=== PATIENT | male | born 1990 | race Caucasian/White ===

== ENCOUNTER 2018-10-17 16:54 | Emergency (ER) | payer SELFPAY ==
[2018-10-17 16:55] VITALS: BP 105/68; PULSE 93; RESP 16; TEMP 36.3; O2SAT 100; BMI 22.4
[2018-10-17 17:03] VITALS: BP 116/82; PULSE 94; RESP 14; O2SAT 100
[2018-10-17] MEDS: 0.9% Normal Saline 1,000 ML 1000 ML IV (18:07)
[2018-10-17] MEDS: diazePAM 5 MG Tablet PO (18:07)
[2018-10-17] MEDS: Ondansetron 4 MG/2 ML Vial IV (18:07)
--- NOTE | 2018-10-17 18:16 | ED.VISSUMM ---
- ER Visit Summary Date of Service: 10/17/18 Chief Complaint: Vertigo History of Present Illness: The patient is a 28 M [facility] emergency department with dizziness. 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 He states he has been fine for several years. On Monday he had an episode of dizziness but it went away. Today he states it was much worse. He notes an episode of vomiting. States he gets dizzy when he stands and when he flexes his neck. He states as long as he is remaining still he was fine. No recent infections. No change in hearing. He is on hydrochlorothiazide for hypertension. Physical Examination: Afebrile vital stable Gen: Well-nourished well-developed Head: Normocephalic atraumatic Eyes: Perrl EOMI ENT: TMs clear no rhinorrhea moist mucous membranes Neck: Supple no lymphadenopathy no JVD nontender CVS: Regular rate rhythm no murmurs normal S1-S2 Respiratory: No distress clear to auscultation bilaterally chest nontender Abdomen: Soft nontender nondistended normal bowel sounds no masses Back: Nontender Extremity: Nontender no edema Skin: Normal color no rash Neuro: alert orientated ?3 CN II-XII intact normal strength sensation reflexes positive Edroy-Hallpike maneuver Psych: Normal affect normal mood Test Results: BMP was obtained. Potassium 3.3. Emergency Department Course and Treatment: Patient received IV fluids, Zofran, and Valium. He is able to ambulate to the bathroom and feels significantly better than he did before. I would provide him with Zofran and Valium at home. Also can give him a handout on cannula 3 positioning technique. I will refer him to ENT. Impression: 1. Vertigo This note was generated with [employer] dictation software. It may contain incorrect words, spelling, and punctuation that were not noted in review of the chart prior to signing ED Disposition - Plan for ED Patient: Disposition: Home or Assisted Living Instructions: ED BPV Vertigo Prescriptions: Ondansetron [Zofran Odt] 4 mg PO Q6H PRN PRN #10 tab PRN Reason: Nausea Diazepam [Valium] 5 mg PO TID PRN #15 tab PRN Reason: Vertigo Referrals: Jose Rojas MD [STAFF PHYSICIAN] - (Call if you wish to see ENT for your vertigo) Khalida Davis DO [Primary Care Provider] - 1 Week
--- NOTE | 2018-10-17 18:20 | ED.DCSUM_ITS ---
- ER Visit Summary Date of Service: 10/17/18 Chief Complaint: Vertigo History of Present Illness: The patient is a 28 M [facility] emergency department with dizziness. 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 He states he has been fine for several years. On Monday he had an episode of dizziness but it went away. Today he states it was much worse. He notes an episode of vomiting. States he gets dizzy when he stands and when he flexes his neck. He states as long as he is remaining still he was fine. No recent infections. No change in hearing. He is on hydrochlorothiazide for hypertension. Physical Examination: Afebrile vital stable Gen: Well-nourished well-developed Head: Normocephalic atraumatic Eyes: Perrl EOMI ENT: TMs clear no rhinorrhea moist mucous membranes Neck: Supple no lymphadenopathy no JVD nontender CVS: Regular rate rhythm no murmurs normal S1-S2 Respiratory: No distress clear to auscultation bilaterally chest nontender Abdomen: Soft nontender nondistended normal bowel sounds no masses Back: Nontender Extremity: Nontender no edema Skin: Normal color no rash Neuro: alert orientated ?3 CN II-XII intact normal strength sensation reflexes positive Hollywood-Hallpike maneuver Psych: Normal affect normal mood Test Results: BMP was obtained. Potassium 3.3. Emergency Department Course and Treatment: Patient received IV fluids, Zofran, and Valium. He is able to ambulate to the bathroom and feels significantly better than he did before. I would provide him with Zofran and Valium at home. Also can give him a handout on cannula 3 positioning technique. I will refer him to ENT. Impression: 1. Vertigo This note was generated with [employer] dictation software. It may contain incorrect words, spelling, and punctuation that were not noted in review of the chart prior to signing ED Disposition - Plan for ED Patient: Disposition: Home or Assisted Living Instructions: ED BPV Vertigo Prescriptions: Ondansetron [Zofran Odt] 4 mg PO Q6H PRN PRN #10 tab PRN Reason: Nausea Diazepam [Valium] 5 mg PO TID PRN #15 tab PRN Reason: Vertigo Referrals: Jose Rojas MD [STAFF PHYSICIAN] - (Call if you wish to see ENT for your vertigo) Khalida Davis DO [Primary Care Provider] - 1 Week
[2018-10-17 18:33] LABS: Anion Gap 6 (5-15); BUN 11 mg/dL (7-18); BUN/Creat Ratio 11.2 RATIO (10-20); Calcium,Total 9.1 mg/dL (8.5-10.1); Chloride 100 mmol/L (98-107); Creatinine, Serum 0.98 mg/dL (0.70-1.30); EST Glomerular Filtration Rate 97 mL/min (>60); Est Glom Filt Rate - Afr Amer 117 mL/min (>60); Estimated Creatinine Clearance 98.07 ml/min; Glucose 101 mg/dL (74-106); Potassium 3.3 mmol/L (3.5-5.1); Sodium Level 136 mmol/L (136-145)
[2018-10-17 19:19] VITALS: BP 115/71; PULSE 89; RESP 17; O2SAT 97
[2018-10-17 19:44] VITALS: BP 118/70; PULSE 86; RESP 17; O2SAT 100
== END 2018-10-17 19:45 | disposition home or self-care (01) ==
PROVIDERS: Emergency Provider Emergency Medicine; Family Provider Family Medicine; PCP Family Medicine
DX: R42 Dizziness and giddiness (principal); I10 Essential (primary) hypertension
CPT/HCPCS: 80048; 96361; 96374; 99283; J2405

== ENCOUNTER 2019-09-02 12:42 | Emergency (ER) | payer MEDICAID, SELFPAY ==
[2019-09-02 12:43] VITALS: BP 124/68; PULSE 103; RESP 16; TEMP 36.2; O2SAT 98; BMI 23.3
--- NOTE | 2019-09-02 12:57 | ED.DCSUM_ITS ---
History of Present Illness Chief Complaint: Nausea/Vomiting Informant: Patient Onset: Hours - 1 Context: Sudden Onset - bent over to help a colleague at work pick something heavy up Timing: Continuous Quality: spinning dizziness Location: head Current Severity: Moderate Maximum Severity: Severe Worsened by: moving head Relieved by: remaining still Associated Symptoms: n/v Narrative: Patient has a history of M?ni?re's that his PCP manages, was told to take Valium if the episode happens again, he had a similar episode prior today as above, and as a result he continued vomiting. He took a Valium but vomited right away and does not think he kept it down and felt no effect from it so was brought to the emergency room. He denies any focal peripheral neurologic symptoms. No recent head injury. No recent illnesses. Some ringing in his left ear, which is common when this occurs, that did not preexist today prior to the onset of symptoms. - Past Medical History (1) M?ni?re's disease Status: Chronic Past Medical History - Allergies and Home Meds Allergies/Adverse Reactions: Allergies No Known Allergies Allergy (Verified 09/02/19 12:45) Primary Care Physician: Khalida Davis DO [Primary Care Provider] - 3-5 Days if not improving Lives: With Family Smoking Status: Never smoker Review of Systems General: Reports: - - dizziness/vertigo Eyes: Reports: Blurred Vision - bilaterally - when very vertiginous; waxes/wanes ENT: Reports: Left ear pain - tinnitus. Denies: Rhinorrhea, Sore throat Gastrointestinal: Reports: Nausea, Vomiting. Denies: Abdominal pain, Diarrhea Skin: Denies: Rash, Wounds Neurological: Denies: Headache, Weakness, Numbness Physical Exam Vital Signs/Narrative: Vital Signs Temp Pulse Resp BP Pulse Ox 09/02/19 12:43 97.2 F L 103 H 16 124/68 H 98 General: Well nourished, Well developed, No Acute Distress Head: Normocephalic, Atraumatic Eyes: Perrl, EOMI, - - no pathologic nystagmus ENT: Moist mucous membranes, No rhinorrhea, TM's clear Neck: Supple, Nontender, No lymphadenopathy Cardiovascular: Regular rate, Regular rhythm, No murmurs Respiratory: No distress, CTA bilaterally, Chest nontender Extremities: Nontender, No edema Skin: Normal color, No rash, No Trauma Neurological: Alert, Oriented x3, Cranial nerves II-XII grossly intact, Normal Strength, Normal Sensation Psychological: Normal affect, Normal Mood Diagnostic/Tx/Re-eval - Medical Decision Making Patient was treated with Ativan 1 mg IM in addition to a Zofran ODT. On reev aluation he is feeling much better. He is able to walk and move around with very mild symptoms that are very tolerable compared to before treatment. He agrees he does not need further work-up. He does needed to feel better from a recurrent issue he has had before. Advised to follow-up for persistent symptoms, given a prescription for meclizine to use in addition to some Zofran if needed. ED Disposition - Plan for ED Patient: Disposition: Home or Assisted Living Diagnosis: Peripheral vertigo involving left ear Instructions: VERTIGO, Unspecified Prescriptions: Meclizine HCl 25 mg PO Q8H PRN #16 tab PRN Reason: Vertigo Prescription Printed Ondansetron [Zofran Odt] 8 mg PO Q8H PRN PRN #10 tab PRN Reason: Nausea Prescription Printed Referrals: Khalida Davis DO [Primary Care Provider] - 3-5 Days if not improving
[2019-09-02 13:20] VITALS: RESP 16
[2019-09-02] MEDS: Ondansetron ODT 4 MG Tablet 8 MG PO (13:22)
[2019-09-02] MEDS: LORazepam 2 MG/ML Syringe 1 MG IM (13:23)
== END 2019-09-02 14:18 | disposition home or self-care (01) ==
LOC: ED 13:06
PROVIDERS: Emergency Provider Emergency Medicine; PCP Family Medicine
DX: H81.392 Other peripheral vertigo, left ear (principal)
CPT/HCPCS: 96372; 99283

== ENCOUNTER → 2020-06-15 06:10 | Outpatient (CLI) | payer MEDICAID, SELFPAY ==
--- NOTE | 2020-06-15 06:39 | MRI_ITS ---
STUDY: MRI BRAIN WITH AND WITHOUT CONTRAST (ATTENTION INTERNAL AUDITORY CANALS - I.A.C.''s) REASON FOR EXAM: Male, 30 years old. Left sided tinnitus. Vertigo. TECHNIQUE: Standardized multiplanar fat and water weighted pulse sequences were obtained. IV DOTAREM 19CC was administered for the contrast portion of the examination. COMPARISON: None. FINDINGS: No diffusion restriction throughout the brain parenchyma. No focal signal abnormalities throughout the brain parenchyma in all of the pulse sequences. Normal bilateral temporal bones. Normal bilateral internal auditory canals. There is no demonstrated intracanalicular or cisternal vestibular schwannoma (acoustic neuroma). There is no enhancement of the bilateral VIIth or VIIIth cranial nerves. Normal bilateral cochlea, vestibules and semicircular canals. Normal size of the ventricles and extra-axial spaces for the patient''s age. Normal white matter tracts of the supratentorial brain. Normal bilateral basal ganglia. Normal thalami. Normal flow voids within the major intracranial circulation suggesting patency by spin echo criteria. Normal venous enhancement. There is no enhancing intra-axial or extra-axial abnormality. There is no extra-axial fluid accumulation. Normal sella turcica, pituitary gland, infundibular stalk, optic chiasm and hypothalamus. Normal tectal plate and pineal gland. Normal midbrain, bertin and medulla. Normal cerebellum. Normal basal cisterns. No demonstrated orbital abnormality, within the constraints of a routine brain study. Normal visualized paranasal sinuses. Normal calvarium and skull base. Normal visualized soft tissue structures. Normal visualized upper cervical spine. MRI/Brain W/WO Contrast IMPRESSION: Normal unenhanced and enhanced MRI of the bilateral internal auditory canals (I.A.C''s). Electronically Signed: Zion Palacios MD at 8:45 EST , Service support ,
== END ==
PROVIDERS: PCP Family Medicine; Referring Provider Otolaryngology; Visit Provider Otolaryngology
DX: H93.12 Tinnitus, left ear (principal)
CPT/HCPCS: 70553; A9575

== ENCOUNTER → 2020-10-05 06:56 | Outpatient (CLI) | payer MEDICAID, SELFPAY ==
[2020-09-14 10:51] VITALS: BMI 27.3
--- NOTE | 2020-10-05 06:57 | MRI_ITS ---
STUDY: MRI CERVICAL SPINE WITH AND WITHOUT CONTRAST REASON FOR EXAM: Male, 30 years old. Cervical Myelopathy, Neck Pain TECHNIQUE: Standardized fat and water weighted pulse sequences were obtained in the sagittal and axial following administration of 15ml IV Dotarem. COMPARISON: None FINDINGS: Normal foramen magnum and brainstem-cervical cord junction. Normal craniovertebral junction. Normal anterior atlantoaxial articulation. Normal odontoid process. Normal cervical lordosis. Normal vertebral bodies and posterior osseous elements. C2-3: Normal endplates. Normal disc height, signal and tiny left paracentral disc protrusion.. Normal central canal and intervertebral neural foramina. C3-4: Normal endplates. Normal disc height, signal and morphology. Normal central canal and intervertebral neural foramina. C4-5: Normal endplates. Normal disc height, signal and morphology. Normal central canal and intervertebral neural foramina. C5-6: Normal endplates. Normal disc height, signal and minor bulging of the disc. Normal central canal and intervertebral neural foramina. C6-7: Normal endplates. Normal disc height, signal and minor bulging of the disc.. Normal central canal and intervertebral neural foramina. C7-T1: Normal endplates. Normal disc height, signal and morphology. Normal central canal and intervertebral neural foramina. T1-T2: (Sagittal only). Normal endplates. Normal disc height, signal and morphology. Normal central canal and intervertebral neural foramina. T2-T3: (Sagittal only). Normal endplates. Mild disc space height narrowing but normal disc signal and morphology. Normal central canal and intervertebral neural foramina. T3-T4: (Sagittal only). Normal endplates. Normal disc height, signal and morphology. Normal central canal and intervertebral neural foramina. Normal cervical cord. Normal visualized soft tissue structures. MRI/Spine Cervical W/WO Contrast IMPRESSION: No evidence for acute fracture or other significant bony pathology Tiny left paracentral disc protrusion at C2-3 and minor bulging of the discs at C5-6 and C6-7 without spinal stenosis or cord compression. Electronically Signed: Hair Hutchinson MD at 16:56 EDT , Service support ,
[2020-10-05 07:44] LABS: Hematocrit 48.4 % (40-54); Hemoglobin 16.6 g/dL (13.0-16.5); Mean Corp Hgb Conc 34.3 g/dL (32-36); Mean Corpuscular Hgb 29.2 pg (27.0-32.0); Mean Corpuscular Volume 85.1 fL (80-94); Mean Platelet Vol. 10.1 fl (6.2-12.0); Platelet Count 290 K/mm3 (150-450); RBC Distribution Width CV 12.2 % (11.6-14.6); RBC Distribution Width SD 37.7 fl (35.1-43.9); Red Blood Count 5.69 M/mm3 (4.6-6.2); White Blood Count 6.4 K/mm3 (4.4-11.0)
[2020-10-05 08:14] LABS: ALB/GLOB Ratio 1.1 RATIO (0.9-2.4); AST(SGOT) 21 U/L (15-37); Alanine Aminotransfer ALT/SGPT 34 U/L (16-61); Albumin, Serum 4.1 g/dL (3.2-5.0); Alkaline Phosphatase 79 U/L (45-117); Anion Gap 5 (5-15); BUN 14 mg/dL (7-18); BUN/Creat Ratio 14.6 RATIO (10-20); Calcium,Total 9.2 mg/dL (8.5-10.1); Chloride 103 mmol/L (98-107); Creatinine, Serum 0.96 mg/dL (0.70-1.30); EST Glomerular Filtration Rate 98 mL/min (>60); Est Glom Filt Rate - Afr Amer 118 mL/min (>60); Globulin 3.9 g/dL (2.2-4.2); Glucose 102 mg/dL (74-106); Potassium 3.9 mmol/L (3.5-5.1); Sodium Level 137 mmol/L (136-145); Thyroid Stim Hormone (TSH) 4.46 uIU/mL (0.358-3.74)
== END ==
PROVIDERS: PCP Family Medicine; Referring Provider Psychiatry & Neurology Neurology; Visit Provider Psychiatry & Neurology Neurology
DX: M54.2 Cervicalgia (principal); G95.9 Disease of spinal cord, unspecified; F41.9 Anxiety disorder, unspecified; F32.9 Major depressive disorder, single episode, unspecified
CPT/HCPCS: 36415; 72156; 80053; 84443; 85027

== ENCOUNTER 2020-10-21 11:30 | Outpatient (RCR) | payer MEDICAID, SELFPAY ==
[2020-09-14 10:51] VITALS: BMI 27.3
--- NOTE | 2020-10-21 11:54 | HP.PTREVAL_ITS ---
Michelle Oliveira, SIMONE-C, It has been my pleasure to treat SUSIE AGARWAL over the last 2 visits for cervicalgia. Please see the progress note below for an update on the physical therapy plan of care! Subjective: Dizzyness is described as lightheadedness lasting most of day. 1x/week. last time jumping on trampoline caused it, looking down too much can cause it. The other day after trampoline, he sat down and was fine. Has had MRI of brain and spine. Normal brain. low sodium diet did not help. Neck MRI showed some inflammation. Objective/Function: Neck ROM is full and painfree, slightly stiff in extension but no pain.(55 degrees). - B hallpike rebekah. - roll test. No MSQ psoitions make him dizzy. No dizzyness ellicited today. Oculomotor is unremarkable: no nystagmus with gaze or head shake. - skew eye deviation. - ocular tilt. - head thrust. Normal pursuit and saccades adn convergence. VOR horiz and v ertical without dizzyness. No obvious vestibular etiology or neck etiology, just slightly diminished neck extension combined with some bulging on MRI. Plan Plan: Pt to neuro next week, however he has not gotten any neck treatments in for therapy. He is willing to do neck ROM ex at home for the next 4 days. No obvious cause to his dizzyness but would be happy to continue to treat neck for a coupe weeks to see if it imight be helpful. It would be difficult to tell in that short period of time as he is only getting dizzy one time per week adn has no neck pain. Will leave that to patient and doctor at f/u visit in 5 days depending on other options and response to home ex for neck. Plan would be STM, ext ROM and ICT if returns. Pt is to call after neuro f/u. Goals Goal 1:: Complete vestibular examination with Beltran Avalos PT. Goal Time Frame: 1 Week Goal Progress: Goal Met Goal 2:: Abolis dizzyness for one month(questionable prognosis at this time) Goal Time Frame: 4-6 Weeks Goal Progress: NEW GOAL if sent back Anticipated Interventions Patient/Client Instruction: Educate patient on: Condition, Plan of Care For the Purpose of:: To improve ability to perform ADL's, To increase tolerance to activity/condition/position, Other Other: Decrease dizziness Therapeutic Exercise to Include: Strength training, Postural training, Gait and locomotor training, Active ROM For the Purpose of:: To improve muscle performance and motor function, To improve ability to perform ADL's, To increase tolerance to activity/condition/position Please do not hesitate to contact me at [phone] by phone or if you have questions or concerns regarding this new plan of care! Sincerely, Beltran Rosenthal, DPT, OCS, CSCS
--- NOTE | 2020-12-30 08:19 | HP.PT.NRP ---
SUSIE AGARWAL was seen in my office for initial evaluation on 10/08/20. The following Plan of Care was established for this patient: Initial Frequency: 1x/Week Initial Duration: 1 Week Patient/Client Instruction: Educate patient on: Condition, Plan of Care For the Purpose of:: To improve ability to perform ADL's, To increase tolerance to activity/condition/position, Other Other: Decrease dizziness Therapeutic Exercise to Include: Strength training, Postural training, Gait and locomotor training, Active ROM For the Purpose of:: To improve muscle performance and motor function, To improve ability to perform ADL's, To increase tolerance to activity/condition/position This patient was last seen in our office . Pertinent comments regarding their Physical therapy will appear below: Pt was treated for 2 PT visits for neck pain through the date of 10/21/20. Pt has not returned through todays date and is therefore discontinued at this time. At this point I will be discontinuing this patient from physical therapy. I would be happy to see this patient again in the future if found appropriate by the physician. Thank you! Louis Bloom, PT, ATC
--- NOTE | 2020-12-30 08:24 | HP.PTCOM_ITS ---
PT Communication Note 12/30/[address] Michelle Oliveira, [employer] MANAGER-C , Pt was discharged accidentally. POC is still active and in progress. Sincerely, Louis Bloom, PT, ATC Contact Information
--- NOTE | 2020-12-30 08:24 | HP.PTCOM ---
PT Communication Note 12/30/[address] Michelle Oliveira, COLON AND RECTAL SURGEON-C , Pt was discharged accidentally. POC is still active and in progress. Sincerely, Louis Bloom, PT, ATC Contact Information
== END 2020-10-21 19:00 | disposition home or self-care (01) ==
LOC: PT 11:30
PROVIDERS: PCP Family Medicine; Referring Provider Nurse Practitioner Family; Visit Provider Nurse Practitioner Family
DX: M50.20 Other cervical disc displacement, unspecified cervical region (principal)
CPT/HCPCS: 97161; 97530

== ENCOUNTER 2020-11-17 14:36 | Emergency (ER) | payer MEDICAID, SELFPAY ==
[2020-10-22 20:23] VITALS: BMI 27.3
[2020-11-17 14:37] VITALS: BP 113/80; PULSE 117; RESP 16; TEMP 36.7; O2SAT 99; BMI 26.2
--- NOTE | 2020-11-17 14:43 | EKG12_ITS ---
Test Reason : PALPS Blood Pressure : / mmHG Vent. Rate : 111 BPM Atrial Rate : 111 BPM P-R Int : 134 ms QRS Dur : 092 ms QT Int : 320 ms P-R-T Axes : 062 078 050 degrees QTc Int : 435 ms Sinus tachycardia Otherwise normal ECG Confirmed by АЛЕКСАНДР GLORIA, ANDREW ([id number]), social media editor LYNNETTE BOSTON ([id number]) on 11/19/2020 12:26:22 PM Referred By: ANGELA Confirmed By:ANDREW FOUNTAIN MD
--- NOTE | 2020-11-17 14:43 | NURSING ---
NO OLD EKGS
--- NOTE | 2020-11-17 14:51 | EDS_ITS ---
HPI History of Present Illness Chief Complaint: Palpitations Narrative Narrative: Patient indicates he was evaluated by his physicians for nonspecific symptoms including dizziness she is found to be hypothyroid he was started on Synthroid 0.25 mg a day and since taking that he reports he feels of his heart intermittently races, he has no history of DC PE DVT and history of dysrhythmia no history of any type of social drug use no tobacco eating and drinking well no fever no cough no chest pain, no coronavirus exposures. He is eating and drinking well normal bowel bladder habits he is noted to have a heart rate about 105 sinus rhythm on the monitor [facility] Medical History (Updated 11/17/20 @ 14:44 by Chelle Yoder) Hypothyroidism Menieres disease Home Medications meclizine 25 mg PO Q8H PRN #16 tab 09/02/19 [Rx Last Taken Unknown] rizatriptan 10 mg tablet 10 mg PO .COMPLEX #9 tablet 10/22/20 [Rx Last Taken Unknown] levothyroxine 25 mcg PO DAILY 11/17/20 [History Last Taken Unknown] Allergy/AdvReac Type Severity Reaction Status Date / Time No Known Allergies Allergy Verified 11/17/20 14:37 Family History Brother CVA (cerebral vascular accident) Epilepsy Heart disease Asthma History of ulcer disease Father Alcoholism Mother Arthritis Diabetes Uncle Myocardial infarction, Onset Age: 30 Mental disorder Social History Smoking Status: Never smoker Electronic Cigarette Use: not used second hand exposure: No alcohol intake: former substance use type: former substance user 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: 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 ROS ROS ED Constitutional Constitutional ED: Reports subjective, sweats and other; Denies chills, fever(s) or weight loss Eyes Eyes: Denies blurry vision or change in vision ENT ENT ED: Denies ear pain Cardiovascular Cardiovascular: Reports palpitations; Denies chest pain Respiratory/Chest Respiratory/Chest: Denies dyspnea Gastrointestinal Gastrointestinal: Denies abdominal pain, nausea or vomiting Genitourinary Genitourinary ED: Denies dysuria or hematuria Musculoskeletal Musculoskeletal: Denies arthralgias or myalgias Integumentary Reports rash; Denies abscess Neurologic Neurologic: Denies weakness Psychiatric Psychiatric: Denies anxiety or depression Endocrine Endocrinology: Denies polydipsia or polyuria Allergic/Immunologic Allergic/Immunologic ED: Denies urticaria EXAM Physical Exam Const Vital Signs: 11/17/20 14:37 11/17/20 14:44 Temperature 98.0 F Temperature Source Temporal Pulse Rate 117 H Respiratory Rate 16 Respiratory Effort Normal Non-Labored Blood Pressure 113/80 Blood Pressure Mean 91 Pulse Ox 99 Oxygen Delivery Method Room Air Positive well developed General Appearance ED: well developed HEENT Reports normocephalic Negative for trauma Eyes EOMs intact bilaterally Neck supple Chest Wall inspection of chest normal Resp normal respiratory effort Resp Narrative: Heart tones are unremarkable he has a heart rate of 110 EKG shows sinus tachycardia 110 nothing acute he is in no distress sitting comfortably in the bed Cardio regular rate GI non-tender and non-distended Back/Spine Back/Spine Narrative: unremarkable Extremity normal to inspection Neuro oriented x3 and CN's II-XII intact bilaterally Sensorium / Orientation: alert Psych mental status grossly normal Skin no rashes or lesions noted MDM MDM MDM Narrative Medical decision making narrative: EKG shows sinus tachycardia at 110 nothing acute he assures me all of the symptoms began 2 weeks ago after he started the Synthroid 0.25 mg he has no other concerns or complaints no signs of infection dehydration no fluid loss at this time ED evaluation screening labs ED evaluation is generally unremarkable see those reports, 1 view chest x-ray to my review is unremarkable, explained this to him he is comfortable discharge home he had really no significant symptoms other than intermittent dizziness I recommended that he take the Synthroid every other day or cut in half or stop it until he can follow-up with his outpatient providers for further management he w ill consider taking it every other day and return for change in symptoms Home stable Final impression palpitations after being started on Synthroid Lab Data Labs: Laboratory Results - last 24 hr 11/17/20 11/17/20 14:58 14:58 WBC 8.1 RBC 5.65 Hgb 16.0 Hct 46.8 MCV 82.8 MCH 28.3 MCHC 34.2 RDW Std Deviation 37.3 RDW Coeff of Freddy 12.3 Plt Count 301 MPV 10.2 Immature Gran % (Auto) 0.200 Neut % (Auto) 66.4 Lymph % (Auto) 23.9 Gaines % (Auto) 8.3 Eos % (Auto) 0.6 Baso % (Auto) 0.6 Absolute Neuts (auto) 5.4 Absolute Lymphs (auto) 1.93 Nucleated RBC % 0 Sodium 139 Potassium 4.1 Chloride 105 Carbon Dioxide 29.0 Anion Gap 5 BUN 9 Creatinine 1.05 Estim Creat Clear Calc 90.30 Est GFR (MDRD) Af Amer 107 Est GFR (MDRD) Non-Af 88 BUN/Creatinine Ratio 8.6 L Glucose 99 Calcium 9.4 Troponin I < 0.015 Radiography Diagnostic Testing: Radiology Impression Chest X-Ray 11/17/20 15:16 IMPRESSION: Normal x-ray examination of the chest. Electronically Signed: Alex Osman MD at 15:37 EDT , Service support , Discharge Plan Triage Chief Complaint: Palpitations ED Provider: Craig Armendariz Dx/Rx/DC Orders Prescriptions: No Action rizatriptan 10 mg tablet 10 mg PO .COMPLEX Qty: 9 RF: 5 meclizine 25 MG tablet 25 mg PO Q8H PRN (Reason: Vertigo) Qty: 16 RF: 0 levothyroxine 25 mcg tablet 25 mcg PO DAILY RF: 0 Primary Care Provider: Khalida Davis
[2020-11-17 15:08] LABS: Absolute Lymphocyte Count 1.93 X10^3/uL (0.83-4.51); Absolute Neutrophil Count 5.4 X10^3/uL (2.0-7.7); Basophil# 0.05 X10^3/uL; Basophil% 0.6 % (0-1); Eosinophil# 0.05 X10^3/uL; Eosinophils% 0.6 % (0-5); Hematocrit 46.8 % (40-54); Lymphocyte # 1.93 X10^3/ul (0.83-4.51); Lymphocyte % 23.9 % (19-41); Mean Corp Hgb Conc 34.2 g/dL (32-36); Mean Corpuscular Hgb 28.3 pg (27.0-32.0); Mean Corpuscular Volume 82.8 fL (80-94); Mean Platelet Vol. 10.2 fl (6.2-12.0); Monocyte# 0.67 X10^3/uL; Monocyte% 8.3 % (0-10); NRBC Flagged by Analyzer 0 % (0-5); Neutrophil # 5.37 X10^3/uL (2.7-7.7); Neutrophil % 66.4 % (47-70); Platelet Count 301 K/mm3 (150-450); RBC Distribution Width CV 12.3 % (11.6-14.6); RBC Distribution Width SD 37.3 fl (35.1-43.9); Red Blood Count 5.65 M/mm3 (4.6-6.2); White Blood Count 8.1 K/mm3 (4.4-11.0)
--- NOTE | 2020-11-17 15:16 | RAD_ITS ---
STUDY: X-RAY CHEST REASON FOR EXAM: Male, 30 years old. Tachycardia. TECHNIQUE: Single AP portable view of the chest. COMPARISON: None. FINDINGS: EKG electrodes are seen. The lungs are clear and expanded. There is no demonstrated pleural abnormality. Normal size heart. Normal mediastinum and shauna. Normal visualized pulmonary arteries. Normal visualized aortic arch and descending thoracic aorta. Normal visualized thoracic spine. Normal visualized ribs, clavicles, and shoulders. There is no demonstrated abnormality of the visualized soft tissue structures of the upper abdomen. RAD/Chest 1 View (Portable) IMPRESSION: Normal x-ray examination of the chest. Electronically Signed: Alex Osman MD at 15:37 EDT , Service support ,
[2020-11-17 15:25] LABS: Anion Gap 5 (5-15); BUN 9 mg/dL (7-18); BUN/Creat Ratio 8.6 RATIO (10-20); Calcium,Total 9.4 mg/dL (8.5-10.1); Chloride 105 mmol/L (98-107); Creatinine, Serum 1.05 mg/dL (0.70-1.30); EST Glomerular Filtration Rate 88 mL/min (>60); Est Glom Filt Rate - Afr Amer 107 mL/min (>60); Glucose 99 mg/dL (74-106); Potassium 4.1 mmol/L (3.5-5.1); Sodium Level 139 mmol/L (136-145)
[2020-11-17 16:00] VITALS: BP 117/67; PULSE 82; RESP 16; O2SAT 100
== END 2020-11-17 16:05 | disposition home or self-care (01) ==
LOC: ED 14:56
PROVIDERS: Emergency Provider Emergency Medicine; PCP Family Medicine
DX: R00.2 Palpitations (principal); R00.0 Tachycardia, unspecified; E03.9 Hypothyroidism, unspecified; H81.09 Meniere's disease, unspecified ear
CPT/HCPCS: 71045; 80048; 84484; 85025; 93005; 99283; J7030; A4216

== ENCOUNTER → 2021-02-10 11:16 | Outpatient (CLI) | payer MEDICAID, SELFPAY ==
[2021-01-28 14:34] VITALS: BMI 25.2
--- NOTE | 2021-02-10 11:18 | ECHOD_ITS ---
Reason For Study: DYSPNEA/SOB Procedure This was a 2D Doppler, Color Flow transthoracic echocardiogram. The study was technically difficult. Exam performed in department. Left Ventricle Normal LV size. Left ventricular systolic function is normal. The estimated ejection fraction is 60 %. Transmitral doppler flow suggestive of impaired relaxation of left ventricle. No regional wall motion abnormalities noted. Right Ventricle Normal RV size. Normal systolic function. Atria Normal left atrium. Normal right atrium. No doppler evidence for ASD. Mitral Valve There is no mitral annular calcification. Normal mitral valve. Trivial mitral valve insufficiency. Tricuspid Valve Normal tricuspid valve. Trivial tricuspid valve insufficiency. Unable to estimate RV systolic pressure/pulmonary artery pressure due to technically difficult study. Aortic Valve Trisinus/trileaflet aortic valve. Normal aortic valve. Pulmonic Valve The pulmonic valve is not well visualized. Great Vessels Normal sized aortic root. Pericardium/Pleural No pericardial effusion. MMode/2D Measurements & Calculations LVIDd: 3.9 cm IVSd: 0.59 cm Ao root diam: 3.0 cm LVIDs: 2.7 cm LVPWd: 0.80 cm RVDd: 2.7 cm FS: 29.7 % LAV(MOD-bp): 17.9 ml LA A4 area: 8.7 cm2 LA dimension(2D): 2.2 cm LAV(MOD-bp) Indexed: 10.4 ml/m2 LAV(MOD-sp2): 19.0 ml LAV(MOD-sp4): 16.2 ml RA A4 area: 8.8 cm2 Time Measurements MV dec time: 0.09 sec Doppler Measurements & Calculations MV E max gabe: 46.7 cm/sec Lat Peak E' Gabe: 9.7 cm/sec Med Peak E' Gabe: 7.9 cm/sec MV A max gabe: 56.4 cm/sec E/E' lat: 4.8 E/E' med: 5.9 MV E/A: 0.83 Ao V2 max: 90.9 cm/sec LV V1 max: 91.1 cm/sec PA V2 max: 73.1 cm/sec Ao max P.3 mmHg LV V1 max P.3 mmHg ECHO/Echo Complete Interpretation Summary The study was technically difficult. Left ventricular systolic function is normal. The estimated ejection fraction is 60 %. Trivial mitral valve insufficiency. Trivial tricuspid valve insufficiency. Unable to estimate RV systolic pressure/pulmonary artery pressure due to techni laxmi difficult study. Transmitral doppler flow suggestive of impaired relaxation of left ventricle Ordering Physician: Juan Moreno Referring Physician: Khalida Davis Performed By: Mae Rangel, RDCS, RVT
--- NOTE | 2021-02-10 20:28 | STRESSREP_ITS ---
Stress Test Report Date: 02-10-2021 Procedure: Exercise tolerance test Indications: Chest pain; shortness of breath/dyspnea on exertion Consent: Per the patient Procedure: The patient exercised on a Estrada protocol for 9 minutes and 30 seconds completing Stage III and 30 seconds of Stage IV achieving a peak heart rate of 193 bpm (101% predicted maximal heart rate) with a peak blood pressure 124/58 mmHg and a peak MET capacity of approximately 11 MET's. The baseline ECG demonstrated sinus rhythm. The peak exercise ECG demonstrated no obvious ECG changes. There were no cardiac dysrhythmias pretest, during exercise, or recovery. The functional capacity was considered good. The patient had notation of mild chest discomfort at peak exercise with shor tness of breath with spontaneous improvement in recovery. The examination was discontinued secondary to dyspnea. Impression: 1. Technically adequate (percent predicted maximal heart rate greater than 85%) exercise tolerance test 2. Negative (adequate) ECG exercise tolerance test 3. There were no cardiac dysrhythmias during exercise or recovery This note was generated with [employer]brain dictation software. It may contain incorrect words, spelling, and punctuation that were not noted in checking the note before signing.
== END ==
PROVIDERS: PCP Family Medicine; Referring Provider Internal Medicine Cardiovascular Disease; Visit Provider Internal Medicine Cardiovascular Disease
DX: R07.9 Chest pain, unspecified (principal); R06.00 Dyspnea, unspecified; H81.09 Meniere's disease, unspecified ear
CPT/HCPCS: 93017; 93225; 93226; 93306

== ENCOUNTER 2021-03-15 10:49 | Emergency (ER) | payer MEDICAID, SELFPAY ==
[2021-03-15 10:50] VITALS: BP 130/87; PULSE 98; RESP 20; TEMP 35.6; O2SAT 99; BMI 25.0
--- NOTE | 2021-03-15 11:16 | EX.ED.DYSGE1 ---
HPI History of Present Illness Chief Complaint: Dizziness Informant: patient Onset/Context/Timing Onset: Today Context: Sudden Onset Timing: Continuous Quality: Spinning Location: Head Worsened by: Head movements Associated Symptoms Associated Symptoms: Tinnitus left ear Narrative Narrative: Patient presents with dizziness that began today. Patient states it began rather suddenly. Patient states it feels like the room is spinning. Patient states it is worse with movement of his head. Patient also admits to some tinnitus in his left ear. 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 Patient states he tried to take a pill at home that he normally takes for vertigo. Patient states this has not been effective. Patient denies any headaches. Patient does admit to some mild neck pain. Patient admits to nausea and vomiting. PFSH PFS Medical History Chest pain, unspecified Dyspnea Hypothyroidism Menieres disease Vertigo Home Medications rizatriptan 10 mg tablet 10 mg PO .COMPLEX PRN tablet 01/28/21 [History Last Taken Unknown] diazepam 2 mg PO TID PRN PRN #10 tablet 03/15/21 [Rx Last Taken Unknown] Allergy/AdvReac Type Severity Reaction Status Date / Time No Known Allergies Allergy Verified 03/15/21 10:51 Family History Brother CVA (cerebral vascular accident) Epilepsy Heart disease Asthma History of ulcer disease Father Alcoholism Mother Arthritis Diabetes Uncle Myocardial infarction, Onset Age: 30 Mental disorder Surgical History History of tonsillectomy and adenoidectomy Social History Smoking Status: Never smoker Electronic Cigarette Use: not used second hand exposure: No alcohol intake: former substance use type: former substance user 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: 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 caffeine: No ROS ROS ED Constitutional Constitutional ED: Reports sweats; Denies chills or fever(s) Eyes Eyes: Reports blurry vision; Denies change in vision ENT ENT ED: Denies rhinorrhea or sore throat Cardiovascular Cardiovascular: Denies chest pain or palpitations Respiratory/Chest Respiratory/Chest: Denies cough or dyspnea Gastrointestinal Gastrointestinal: Reports nausea and vomiting Genitourinary Genitourinary ED: Denies dysuria or hematuria Musculoskeletal Musculoskeletal: Reports neck pain; Denies back pain Integumentary Denies abscess or rash Neurologic Neurologic: Denies headache(s) or weakness Allergic/Immunologic Allergic/Immunologic ED: Denies mouth swelling or urticaria EXAM Physical Exam Const Vital Signs: 03/15/21 10:50 03/15/21 11:19 03/15/21 11:20 Temperature 96.0 F L Temperature Source Temporal Pulse Rate 98 107 H Respiratory Rate 20 H 13 Respiratory Effort Normal Non-Labored Respiratory Pattern Normal Blood Pressure 130/87 H 117/77 Blood Pressure Mean 101 90 Pulse Ox 99 95 Oxygen Delivery Method Room Air Room Air 03/15/21 13:01 Temperature Temperature Source Pulse Rate 77 Respiratory Rate 19 H Respiratory Effort Respiratory Pattern Blood Pressure 116/75 Blood Pressure Mean 88 Pulse Ox Oxygen Delivery Method Positive well nourished and well developed General Appearance ED: well developed HEENT Reports moist mucous membranes Eyes PERRL and EOMs intact bilaterally Eyes Narrative: There is no nystagmus noted. Neck supple and no JVD Resp normal respiratory effort and clear to auscultation bilaterally Cardio regular rate, regular rhythm and no murmurs GI normal to inspection, nondistended, normoactive bowel sounds and non-tender Palpation: soft Extremity normal to inspection General Extremety ED: Negative for edema or tenderness General Extremity: Negative for edema Neuro oriented x3, CN's II-XII intact bilaterally and no sensory deficits noted Sensorium / Orientation: alert Motor Exam: strength 5/5 throughout Psych mental status grossly normal Skin no rashes or lesions noted MDM MDM MDM Narrative Medical decision making narrative: Patient was given IV fluids, Zofran, and Valium here. CBC and comprehensive metabolic profile were obtained and were within normal limits. Patient was feeling better on reevaluation. Patient was advised of his findings. Patient was given a prescription for Valium. Patient was instructed to follow-up with his primary care physician in 7 to 10 days. Patient states he has an appointment with his ENT this afternoon. Patient was instructed to keep that appointment. Patient was instructed to return if worse in any way. Patient understood and was agreeable with the plan. All questions were answered. Lab Data Attestation: I reviewed the patient's lab results. Labs: Laboratory Results - last 24 hr 03/15/21 03/15/21 11:40 11:40 WBC 6.9 RBC 5.70 Hgb 16.4 Hct 47.4 MCV 83.2 MCH 28.8 MCHC 34.6 RDW Std Deviation 36.8 RDW Coeff of Freddy 12.1 Plt Count 345 MPV 9.6 Immature Gran % (Auto) 0.300 Neut % (Auto) 57.2 Lymph % (Auto) 30.9 [place] % (Auto) 7.5 Eos % (Auto) 3.2 Baso % (Auto) 0.9 Absolute Neuts (auto) 4.0 Absolute Lymphs (auto) 2.13 Nucleated RBC % 0 Sodium 139 Potassium 3.8 Chloride 105 Carbon Dioxide 28.0 Anion Gap 6 BUN 8 Creatinine 0.99 Estim Creat Clear Calc 94.91 Est GFR (MDRD) Af Amer 115 Est GFR (MDRD) Non-Af 95 BUN/Creatinine Ratio 8.1 L Glucose 143 H Calcium 9.3 Total Bilirubin 0.50 AST 25 ALT 27 Alkaline Phosphatase 95 Total Protein 8.3 H Albumin 3.9 Globulin 4.4 H Albumin/Globulin Ratio 0.9 Discharge Plan Triage Chief Complaint: Dizziness ED Provider: Beltran Jc Dx/Rx/DC Orders Clinical Impression: Vertigo Instructions: ED Vertigo, Unspecified Prescriptions: New diazepam [diazepam] 2 MG tablet 2 mg PO TID PRN PRN (Reason: Vertigo) Qty: 10 RF: 0 No Action rizatriptan 10 mg tablet 10 mg PO .COMPLEX PRNRF: 0 Primary Care Provider: Khalida Davis Referrals: Beltran Darden MD [STAFF PHYSICIAN] - Keep John appointment Khalida Davis DO [Primary Care Provider] - 1-2 Weeks Disposition Disposition: Home, Self Care
[2021-03-15 11:19] VITALS: BP 117/77; PULSE 107; RESP 13; O2SAT 95
[2021-03-15] MEDS: Ondansetron 4 MG/2 ML Vial IV (11:44)
[2021-03-15] MEDS: 0.9% Normal Saline 1,000 ML 1000 ML IV (11:44)
[2021-03-15] MEDS: diazePAM 5 MG Tablet PO (11:44)
[2021-03-15 11:48] LABS: Absolute Lymphocyte Count 2.13 X10^3/uL (0.83-4.51); Basophil# 0.06 X10^3/uL; Basophil% 0.9 % (0-1); Eosinophil# 0.22 X10^3/uL; Eosinophils% 3.2 % (0-5); Hematocrit 47.4 % (40-54); Hemoglobin 16.4 g/dL (13.0-16.5); Lymphocyte # 2.13 X10^3/ul (0.83-4.51); Lymphocyte % 30.9 % (19-41); Mean Corp Hgb Conc 34.6 g/dL (32-36); Mean Corpuscular Hgb 28.8 pg (27.0-32.0); Mean Corpuscular Volume 83.2 fL (80-94); Mean Platelet Vol. 9.6 fl (6.2-12.0); Monocyte# 0.52 X10^3/uL; Monocyte% 7.5 % (0-10); NRBC Flagged by Analyzer 0 % (0-5); Neutrophil # 3.95 X10^3/uL (2.7-7.7); Neutrophil % 57.2 % (47-70); Platelet Count 345 K/mm3 (150-450); RBC Distribution Width CV 12.1 % (11.6-14.6); RBC Distribution Width SD 36.8 fl (35.1-43.9); White Blood Count 6.9 K/mm3 (4.4-11.0)
[2021-03-15 12:04] LABS: ALB/GLOB Ratio 0.9 RATIO (0.9-2.4); AST(SGOT) 25 U/L (15-37); Alanine Aminotransfer ALT/SGPT 27 U/L (16-61); Albumin, Serum 3.9 g/dL (3.2-5.0); Alkaline Phosphatase 95 U/L (45-117); Anion Gap 6 (5-15); BUN 8 mg/dL (7-18); BUN/Creat Ratio 8.1 RATIO (10-20); Calcium,Total 9.3 mg/dL (8.5-10.1); Chloride 105 mmol/L (98-107); Creatinine, Serum 0.99 mg/dL (0.70-1.30); EST Glomerular Filtration Rate 95 mL/min (>60); Est Glom Filt Rate - Afr Amer 115 mL/min (>60); Estimated Creatinine Clearance 94.91 ml/min; Globulin 4.4 g/dL (2.2-4.2); Glucose 143 mg/dL (74-106); Potassium 3.8 mmol/L (3.5-5.1); Protein, Total 8.3 g/dL (6.4-8.2); Sodium Level 139 mmol/L (136-145)
[2021-03-15 13:01] VITALS: BP 116/75; PULSE 77; RESP 19
[2021-03-15 14:11] VITALS: BP 124/75; PULSE 84; RESP 22
== END 2021-03-15 14:12 | disposition home or self-care (01) ==
PROVIDERS: Emergency Provider Emergency Medicine; PCP Family Medicine
DX: R42 Dizziness and giddiness (principal); R11.2 Nausea with vomiting, unspecified; M54.2 Cervicalgia; E03.9 Hypothyroidism, unspecified
CPT/HCPCS: 80053; 85025; 96361; 96374; 99285; J7030; A4216; J2405

== ENCOUNTER → 2021-03-17 09:02 | Outpatient (CLI) | payer MEDICAID, SELFPAY ==
[2021-03-17 10:14] LABS: Thyroid Stim Hormone (TSH) 3.52 uIU/mL (0.358-3.74)
[2021-03-25 16:09] LABS: Metanephrine, Ur 74 ug/L (Undefined); Normetanephrines, 24Ur 65 ug/24 hr (110-553); Normetanephrines, Ur 119 ug/L (Undefined)
[2021-03-25 16:52] LABS: Metanephrines, 24Ur 41 ug/24 hr (58-276)
== END ==
PROVIDERS: PCP Family Medicine; Visit Provider Otolaryngology
DX: R00.2 Palpitations (principal)
CPT/HCPCS: 36415; 83835; 84443

== ENCOUNTER → 2022-02-09 | Outpatient (CLI) | payer OTHER, MEDICAID, SELFPAY ==
--- NOTE | 2022-02-09 13:12 | RAD_ITS ---
STUDY: X-RAY CHEST REASON FOR EXAM: Male, 32 years old. Right sided chest pain. TECHNIQUE: PA and lateral views of the chest. COMPARISON: 11/17/2020. FINDINGS: The lungs are clear and expanded. There is no demonstrated pleural abnormality. Normal size heart. Normal mediastinum and shauna. Normal visualized pulmonary arteries. Normal visualized aortic arch and descending thoracic aorta. Normal visualized thoracic spine. Normal visualized ribs, clavicles, and shoulders. There is no demonstrated abnormality of the visualized soft tissue structures of the upper abdomen. RAD/Chest PA and Lateral IMPRESSION: No acute cardiopulmonary disease or interval change. Electronically Signed: Gaurav Triana DO at 17:15 EDT ,
== END | disposition home or self-care (01) ==
PROVIDERS: PCP Family Medicine; Referring Provider Family Medicine; Visit Provider Family Medicine
DX: R07.9 Chest pain, unspecified (principal)
CPT/HCPCS: 71046

== ENCOUNTER 2024-02-25 15:12 | Emergency (ER) | payer OTHER, SELFPAY ==
[2024-02-25 15:13] VITALS: BP 121/83; PULSE 100; RESP 16; TEMP 36.1; O2SAT 99; BMI 28.6
--- NOTE | 2024-02-25 16:31 | EDS_ITS ---
HPI History of Present Illness Chief Complaint: Edema Informant: patient Narrative Narrative: Patient is a 34-year-old male with history of M?ni?re's disease in the left ear as well as anxiety presenting from home with tingling to the right side of his face, dry eye on the right side and swelling of his right eyelid. Patient started having symptoms yesterday and is worsening throughout the day today. States that his eye feels like it is draining and dry. States when he woke up today his right eyelid was matted shut. Denies any vision changes or blurry vision. Denies any fever or chills. Denies any acute hearing changes. States he has been under a lot of stress lately. Initially went to urgent care and was told he needs to come to the emergency room. Denies any other symptoms including numbness or weakness to the extremities. Denies feeling off balance. No other complaints or concerns at this time. [facility] Medical History Dyspnea Chest pain, unspecified Vertigo Menieres disease Hypothyroidism Home Medications ?Medication ?Instructions ?Recorded ?Last Taken ?Type rizatriptan 10 mg tablet 10 mg PO .COMPLEX PRN migraine 01/28/21 Unknown History headache diazepam 2 mg tablet 2 mg PO TID PRN PRN Vertigo #10 03/15/21 Unknown Rx TABLETS carboxymethylcellulose sodium 0.5 1 drp RIGHT EYE Q1H PRN dry eye(s) 02/25/24 Unknown Rx % eye drops in a dropperette #50 ea (Lubricating Plus) prednisone 20 mg tablet 60 mg (3 x 20 mg) PO DAILY #12 02/25/24 Unknown Rx TABLETS Allergy/AdvReac Type Severity Reaction Status Date / Time No Known Allergies Allergy Verified 02/25/24 15:15 Family History Brother CVA (cerebral vascular accident) Epilepsy Heart disease Asthma History of ulcer disease Father Alcoholism Mother Arthritis Diabetes Uncle Myocardial infarction, Onset Age: 30 Mental disorder Surgical History History of tonsillectomy and adenoidectomy Social History Smoking Status: Never smoker Electronic Cigarette Use: not used second hand exposure: No alcohol intake: former substance use type: former substance user 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: 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 caffeine: No ROS ROS ED Constitutional Constitutional ED: Denies chills or fever(s) Eyes Eyes: Reports other Details: Dry eye on the right, drainage on the right eye ENT ENT ED: Denies ear pain, rhinorrhea or sore throat Cardiovascular Cardiovascular: Denies chest pain Respiratory/Chest Respiratory/Chest: Denies cough Gastrointestinal Gastrointestinal: Denies nausea or vomiting Musculoskeletal Musculoskeletal: Denies arthralgias or myalgias Neurologic Neurologic: Denies headache(s), paresthesias or weakness Psychiatric Psychiatric: Reports anxiety EXAM Physical Exam Const Vital Signs: 02/25/24 15:13 02/25/24 15:28 Temperature 97 F L Temperature Source Temporal Pulse Rate 100 Respiratory Rate 16 Respiratory Effort Normal Respiratory Pattern Normal Blood Pressure 121/83 H Blood Pressure Mean 95 Pulse Ox 99 Oxygen Delivery Method Room Air Positive well nourished and well developed General Appearance ED: well developed and NAD HEENT Reports TM's clear and moist mucous membranes Tympanic Membrane ED: Yes TM's clear Eyes PERRL and EOMs intact bilaterally Eyes Narrative: Very mild conjunctival injection to the right eye. Very mild swelling of the superior periorbital area on the right side. No associated erythema or induration of the skin. Neck supple Chest Wall inspection of chest normal Resp normal respiratory effort and clear to auscultation bilaterally Cardio regular rate and regular rhythm GI normal to inspection, nondistended, normoactive bowel sounds Extremity normal to inspection General Extremety ED: Negative for edema General Extremity: Negative for edema Neuro oriented x3 Neuro Narrative: Subtle right-sided facial droop with asymmetric forehead. There is deficit with rapid blinking on the right side however patient is able to intentionally completely close his eye. Sensorium / Orientation: alert Motor Exam: strength 5/5 throughout; Negative for general weakness Psych mental status grossly normal Skin no rashes or lesions noted and no wounds MDM MDM MDM Narrative Medical decision making narrative: Patient is evaluated for irritation to his right eye. 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 I suspect the swelling and irritation in his right eye is due to dry eye from not adequately being able to blink. Patient be started on prednisone and instructed to use lubricating eyedrops. Will be given outpatient ophthalmology referral. Instructed to follow-up with his primary care doctor. Patient otherwise well-appearing. Have a low suspicion for central process or acute stroke/need for neuroimaging or further workup at this time. I do not appreciate any rash consistent with Abbot Abernathy syndrome. Patient is given first dose of steroids in the emergency room. Discharge Plan Triage Chief Complaint: Edema ED Provider: Meme Clement Dx/Rx/DC Orders Clinical Impression: Right-sided Stanford's palsy, Corneal irritation of right eye Instructions: ED Stanford's Palsy Prescriptions: New prednisone 20 mg tablet 60 mg PO DAILY Qty: 12 0RF carboxymethylcellulose sodium [Lubricating Plus] 0.5 % dropperette 1 drp RIGHT EYE Q1H PRN (Reason: dry eye(s)) Qty: 50 0RF No Action rizatriptan 10 mg tablet 10 mg PO .COMPLEX PRN (Reason: migraine headache) Rx Instructions: 10 mg PO every two hours as needed for headache up to three tablets per day PRN; diazepam [diazepam] 2 MG tablet 2 mg PO TID PRN PRN (Reason: Vertigo) Qty: 10 0RF Primary Care Provider: Khalida Davis Referrals: Dave Thomas MD [Med Staff - Active Staff] - 1-2 Days if not improving Khalida Davis DO [Primary Care Provider] - Activity Restrictions/Additional Instructions: Clinically you have a Stanford's palsy to the right side of your face. This makes i t hard if you to blink and then causes irritation to the eye. You have been prescribed steroids as well as eyedrops. I recommend [id number] brand Systane. I have given you also outpatient follow-up with ophthalmology through [facility]. Print Language: Frisian Disposition Disposition: Home, Self Care
[2024-02-25] MEDS: predniSONE 20 MG Tablet 60 MG PO (16:47)
== END 2024-02-25 16:57 | disposition home or self-care (01) ==
PROVIDERS: Emergency Provider Emergency Medicine; PCP Family Medicine; Visit Provider Emergency Medicine
DX: G51.0 Bell's palsy (principal); H57.89 Other specified disorders of eye and adnexa; E03.9 Hypothyroidism, unspecified; F41.9 Anxiety disorder, unspecified
CPT/HCPCS: 99282

== ENCOUNTER 2024-03-27 17:00 | Outpatient (RCR) | payer OTHER, SELFPAY ==
--- NOTE | 2024-02-06 11:49 | HP.PTEVAL ---
Patient's Visit Information Visit Information Visit Information: SUSIE AGARWAL is a 34 year old M referred to Physical Therapy by Dr. Khalida Davis DO with a diagnosis of vertigo and cervical radiculopathy. Date of Evaluation: 02/06/24 Physical Therapist: NERY Machuca Visit Plan Frequency: 1-2x /Week Duration: 4 Weeks Plan: Pt to go home and try 3 X 10 chin tucks with head on towel 3-4X/ day and see how he feels. He is aware to stop the exercises if he gets increase dizziness or pain. See effectiveness of the supine chin tucks HEP: supine chin tucks on rolled towel Subjective Subjective: Pt is having really bad vertigo. The room spins. He has 2-3 episodes a week. The episodes lasts all day. Sometimes he does not know what is causing it like at work his fast paced moving. He gets a little lightheaded and spinning for about a half and hour with rolling in bed and standing up. He got x-rays in his spine and they said there is some things in his spine that could be causing his pain. He is going to see Dr Den Tate (chiropractor) and he is seeing him twice a week. He has seen him once already and it has not helped. He is getting REAGAN (1-2X/ week) and they last most of the day. He does not sleep well at night getting light headed or REAGAN. He has to have pillow propping hip up. He has had no Head injuries. Dr Davis said that he has a lot of tension on the L side. He is on a medication and has only tried it 3 times. He occ gets some tingling in his L side got cramped and achy. They just did an EEG and that was fine. This has been going on for 8-10 years now and it is getting worse. He gets very stressed out at times but hard to related what is causing it. They ordered an MRI but it was denied and waiting on the appeal. Has to sleep on the R side or propped up or he will get dizzy. He wakes up in the middle of the night lightheaded). Pain neck pain: Pain Intensity (Out of 10): 5 Objective Objective: C-spine AROM: flex 100%, Ext 50% (increase lightheaded), Rot B 80%, SB B 80% (L>R dizziness/lightheadedness to the L) UE AROM: full AROM all planes UE MMT: R shoulder flex B 4+/5, R shoulder ABD 4+/5, R shoulder ER/IR 4/5 B B bicep reflex 2+/3 B R handed: R 75% and L 68# -R Hallpike. Questionable L Hallpike for dizziness that lasted less than a minute but no nystagmus..... treated with L EPLY. Re-tested L hallpike and same dizziness/lightheadedness as before the eply with no nystagmus Supine c-spine PROM to all end ranges except when put pt head back into extension and caused lightheaded/passing out feeling Seated vertical and horizontal smooth pursuit 45 seconds each and very slight lightheadedness. Seated head and eyes from one target to the next target horizontal and vertical X 45 each (no dizziness horizontal but slight lightheadedness with vertical) Walking with horizontal head turns did not cause any dizziness Walking with vertical head turns did cause some lightheadedness (pass out feeling) Sitting in a chair with neck extension AROM X 10 (started getting lightheaded at 6) Supine chin tucks onto a rolled towel under head X 10 (first one slight lightheadedness and the more he did the more lightheaded he got) repeated X 10 more (lightheaded while doing it but then stops) attempted X 10 more (no lightheadedness but some neck pain).... X 10 (no lightheadedness now)...did have to get up very slow and some lightheadedness getting up. Then did X 10 seated neck ext and got a little lightheaded. Balance/Special Test Scores Dizziness Score: 74 Goals Goal 1:: I HEP Goal Time Frame: 4-6 Weeks Goal 2:: Abolish lightheadedness with neck extension Goal Time Frame: 4-6 Weeks Goal 3:: be able to walk with vertical head turns without getting lightheaded Goal Time Frame: 4-6 Weeks Rehabilitation Potential Physical Therapy Diagnosis: At this point in time the only thing that brings on the patients lightheadedness is looking up into extension, chin tucks, and lying back down on his back. Nothing else vestibular bailey brought on his dizziness. Will try some light extension based exercises starting in supine to see if helps his lightheadedness at all and if not, probable DC back to physician Rehabilitation Potential: Fair Anticipated Interventions Patient/Client Instruction: Educate patient on: Condition and Plan of Care For the Purpose of:: To decrease pain, To increase ROM, To improve nutrient delivery to tissue, To improve muscle performance and motor function, To improve ability to perform ADL's, To improve performance and independence with ADL's, To decrease soft tissue restriction and To increase flexibility/ROM Therapeutic Exercise to Include: Strength training, Postural training, Passive ROM, Active ROM and Scapular Strength/Stabilization For the Purpose of:: To decrease pain, To increase ROM, To improve nutrient delivery to tissue, To improve muscle performance and motor function, To improve ability to perform ADL's, To improve health of tissue, To decrease soft tissue restriction, To increase flexibility/ROM and To improve endurance Manual Therapy Techniques to Include: Mobilization, Passive ROM and Soft tissue mobilization For the Purpose of:: To decrease pain, To increase ROM, To improve nutrient delivery to tissue, To improve muscle performance and motor function, To improve health of tissue, To decrease soft tissue restriction and To increase flexibility/ROM Text: Thank you for the opportunity to evaluate your patient. For Medicare and Medicare HMO plans, please review the plan of care and approve it. It will need to be FAXED BACK to us at [phone] for Medicare purposes. For Medicare only, by signing this I certify the plan of care. Please let me know if there are questions or concerns regarding this plan of care. Physician Signature: Date:
--- NOTE | 2024-06-04 09:34 | HP.PT.NRP ---
Patient Information Patient Information: SUSIE AGARWAL was seen in my office for initial evaluation on 02/06/24. The following Plan of Care was established for this patient: POC Established Initial Frequency: 1-2x /Week Initial Duration: 4 Weeks Anticipated Interventions Patient/Client Instruction: Educate patient on: Condition and Plan of Care For the Purpose of:: To decrease pain, To increase ROM, To improve nutrient delivery to tissue, To improve muscle performance and motor function, To improve ability to perform ADL's, To improve performance and independence with ADL's, To decrease soft tissue restriction and To increase flexibility/ROM Therapeutic Exercise to Include: Strength training, Postural training, Passive ROM, Active ROM and Scapular Strength/Stabilization For the Purpose of:: To decrease pain, To increase ROM, To improve nutrient delivery to tissue, To improve muscle performance and motor function, To improve ability to perform ADL's, To improve health of tissue, To decrease soft tissue restriction, To increase flexibility/ROM and To improve endurance Manual Therapy Techniques to Include: Mobilization, Passive ROM and Soft tissue mobilization For the Purpose of:: To decrease pain, To increase ROM, To improve nutrient delivery to tissue, To improve muscle performance and motor function, To improve health of tissue, To decrease soft tissue restriction and To increase flexibility/ROM Last Seen Last Seen: This patient was last seen in our office 03/27/24. Pertinent comments regarding their Physical therapy will appear below: [facility] PT At this point I will be discontinuing this patient from physical therapy. I would be happy to see this patient again in the future if found appropriate by the physician. Thank you! Laurel Sseay, NERY Balance/Gait/Functional tests Balance/Special Test Scores Dizziness Score: 74
== END 2024-03-27 19:00 | disposition home or self-care (01) ==
LOC: PT 17:00
PROVIDERS: PCP Family Medicine; Referring Provider Family Medicine; Visit Provider Family Medicine
DX: M54.12 Radiculopathy, cervical region (principal); R42 Dizziness and giddiness
CPT/HCPCS: 97110; 97140; 97162

== ENCOUNTER → 2024-04-05 | Outpatient (CLI) | payer OTHER, SELFPAY ==
--- NOTE | 2024-04-05 14:57 | ECHOD_ITS ---
Reason For Study: DYSPNEA, DIZZINESS Procedure This was a 2D Doppler, Color Flow transthoracic echocardiogram. Exam performed in department. Left Ventricle Normal LV size. Left ventricular systolic function is normal. The left ventricular ejection fraction is 60 %. Stage 1 diastolic dysfunction. No regional wall motion abnormalities noted. Right Ventricle Normal RV size. Normal systolic function. Atria Normal left atrium. Normal right atrium. Mitral Valve Normal mitral valve. Tricuspid Valve Normal tricuspid valve. Aortic Valve Trisinus/trileaflet aortic valve. Pulmonic Valve Normal pulmonic valve. Great Vessels Normal aortic root. The pulmonary artery is normal size. Normal inferior vena cava. Pericardium/Pleural No pericardial effusion. MMode/2D Measurements & Calculations LVIDd: 4.3 cm IVSd: 0.75 cm Ao root diam: 3.2 cm LVIDs: 3.1 cm LVPWd: 0.89 cm RVDd: 3.2 cm FS: 27.6 % LAV(MOD-bp): 30.0 ml LVAd ap4: 23.2 cm2 LVAd ap2: 21.3 cm2 LAV(MOD-bp) Indexed: 16.9 ml/m2 LVLd ap4: 7.1 cm LVLd ap2: 7.8 cm LAV(MOD-sp2): 27.6 ml EDV(MOD-sp4): 63.7 ml EDV(MOD-sp2): 51.9 ml LAV(MOD-sp4): 33.2 ml EDV(sp4-el): 64.1 ml EDV(sp2-el): 49.3 ml LVAs ap4: 12.3 cm2 LVAs ap2: 11.6 cm2 LVLs ap4: 5.1 cm LVLs ap2: 6.1 cm ESV(MOD-sp4): 25.3 ml ESV(MOD-sp2): 19.9 ml ESV(sp4-el): 24.9 ml ESV(sp2-el): 18.8 ml EF(MOD-sp4): 60.3 % EF(MOD-sp2): 61.6 % EF(sp4-el): 61.1 % SV(MOD-sp4): 38.4 ml SV(MOD-sp2): 32.0 ml SV(sp4-el): 39.2 ml LA dimension(2D): 3.3 cm LA A4 area: 13.2 cm2 RA A4 area: 13.6 cm2 TAPSE: 2.1 cm Time Measurements MV dec time: 0.20 sec Doppler Measurements & Calculations MV E max gabe: 64.8 cm/sec Lat Peak E' Gabe: 10.2 cm/sec Med Peak E' Gabe: 9.0 cm/sec MV A max gabe: 66.6 cm/sec E/E' lat: 6.4 E/E' med: 7.2 MV E/A: 0.97 MV V2 max: 79.5 cm/sec MV P1/2t max gabe: 66.1 cm/sec Ao V2 max: 121.5 cm/sec MV max P.5 mmHg MV P1/2t: 45.1 msec Ao max P.9 mmHg MV V2 mean: 51.8 cm/sec MV dec slope: 429.5 cm/sec2 Ao V2 mean: 90.0 cm/sec MV mean P.2 mmHg Ao mean P.5 mmHg MV V2 VTI: 13.9 cm MVA(P1/2t): 4.9 cm2 Ao V2 VTI: 20.0 cm AV (velocity ratio): 0.94 LV V1 max: 108.0 cm/sec PA V2 max: 101.9 cm/sec LV V1 max P.7 mmHg PA V2 mean: 76.2 cm/sec LV V1 mean P.4 mmHg LV V1 mean: 73.7 cm/sec LV V1 VTI: 18.9 cm ECHO/Echo Complete Interpretation Summary Normal LV size. Left ventricular systolic function is normal. The left ventricular ejection fraction is 60 %. Stage 1 diastolic dysfunction. Structurally normal valves. Ordering Physician: Khalida Davis Referring Physician: Khalida Davis Performed By: Mae Rangel, RDCS, RVT
== END | disposition home or self-care (01) ==
LOC: CVS 14:55
PROVIDERS: PCP Family Medicine; Referring Provider Family Medicine; Visit Provider Family Medicine
DX: R42 Dizziness and giddiness (principal); R06.02 Shortness of breath
CPT/HCPCS: 93306

== ENCOUNTER 2024-06-25 13:08 | Emergency (ER) | payer OTHER, SELFPAY ==
[2024-06-25 13:10] VITALS: BP 126/98; PULSE 88; RESP 18; TEMP 36.1; O2SAT 98; BMI 29.7
--- NOTE | 2024-06-25 15:15 | EDS_ITS ---
HPI HPI - GI History of Present Illness Chief Complaint: GI Bleed Informant: patient Abdominal Pain/Flank Pain Onset: Yesterday Context: Sudden Onset Timing: Continuous Quality: Burning Location: Epigastric Worsened by: Nothing Relieved by: Antacids (Omeprazole) Nausea/Vomiting/Emesis GI Symptom: Positive for Nausea and Vomiting Onset: Today Quality: Positive for Hematemesis Diarrhea/Melena/Hematochezia GI Symptom: Negative for Diarrhea, Melena or Hematochezia Associated Symptoms Associated Symptoms: Negative for Dysuria, Frequency or Hematuria Narrative Narrative: Patient presents with abdominal pain, nausea, and vomiting that began last nigh t. Patient states that he vomited up some dark blood early this morning. Patient states he has not vomited since that time. Patient describes some pain over his epigastric area. Patient describes it as burning. Patient states it is constant. Patient states it began suddenly last night. Patient denies any diarrhea, melena, or hematochezia. Patient denies any urinary symptoms. [facility] History Dyspnea Chest pain, unspecified Vertigo Menieres disease Hypothyroidism Home Medications ?Medication ?Instructions ?Recorded ?Last Taken ?Type rizatriptan 10 mg tablet 10 mg PO .COMPLEX PRN migraine 01/28/21 Unknown History headache diazepam 2 mg tablet 2 mg PO TID PRN PRN Vertigo #10 03/15/21 Unknown Rx TABLETS carboxymethylcellulose sodium 0.5 1 drp RIGHT EYE Q1H PRN dry eye(s) 02/25/24 Unknown Rx % eye drops in a dropperette #50 ea (Lubricating Plus) prednisone 20 mg tablet 60 mg (3 x 20 mg) PO DAILY #12 02/25/24 Unknown Rx TABLETS Allergy/AdvReac Type Severity Reaction Status Date / Time No Known Allergies Allergy Verified 06/25/24 13:10 Family History Brother CVA (cerebral vascular accident) Epilepsy Heart disease Asthma History of ulcer disease Father Alcoholism Mother Arthritis Diabetes Uncle Myocardial infarction, Onset Age: 30 Mental disorder Surgical History History of tonsillectomy and adenoidectomy Social History Smoking Status: Never smoker Electronic Cigarette Use: not used second hand exposure: No alcohol intake: former substance use type: former substance user 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: 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 caffeine: No ROS ROS ED Constitutional Constitutional ED: Denies chills or fever(s) Eyes Eyes: Denies blurry vision or change in vision ENT ENT ED: Denies rhinorrhea or sore throat Cardiovascular Cardiovascular: Denies chest pain or palpitations Respiratory/Chest Respiratory/Chest: Denies cough or dyspnea Gastrointestinal Gastrointestinal: Reports abdominal pain, nausea and vomiting; Denies diarrhea or melena Genitourinary Genitourinary ED: Denies dysuria or hematuria Musculoskeletal Musculoskeletal: Denies back pain or neck pain Integumentary Denies abscess or rash Neurologic Neurologic: Reports headache(s); Denies weakness Allergic/Immunologic Allergic/Immunologic ED: Denies mouth swelling or urticaria EXAM Physical Exam Const Vital Signs: 06/25/24 13:10 06/25/24 17:00 Temperature 97 F L Temperature Source Temporal Pulse Rate 88 78 Respiratory Rate 18 18 Blood Pressure 126/98 H 120/77 Blood Pressure Mean 107 91 Pulse Ox 98 98 Oxygen Delivery Method Room Air Room Air Positive well nourished and well developed General Appearance ED: well developed HEENT Reports moist mucous membranes Neck supple and no JVD Resp normal respiratory effort and clear to auscultation bilaterally Cardio regular rate and regular rhythm GI non-distended Palpation: soft and tender epigastric; Negative for guarding or rebound tenderness present Extremity General Extremety ED: Negative for edema or tenderness General Extremity: Negative for edema Neuro CN's II-XII intact bilaterally, moves all extremities and no sensory deficits noted Sensorium / Orientation: alert Motor Exam: strength 5/5 throughout Psych mental status grossly normal and thought process normal MDM MDM MDM Narrative Medical decision making narrative: Differential diagnosis includes peptic ulcer disease, upper gastrointestinal bleeding, pancreatitis, duodenal ulcer, cholecystitis, cholelithiasis, viral illness. CBC will be obtained to assess for leukocytosis or anemia. Comprehensive metabolic profile will be obtained to assess for hepatic function, renal function, and electrolyte abnormality. Lipase will be obtained to assess for pancreatitis. Stool will be sent for occult blood. Urinalysis will be obtained to assess for urinary tract infection and hematuria. Lab Data Attestation: I reviewed the patient's lab results. Lab results narrative: CBC was reviewed and was within normal limits. Comprehensive metabolic profile was reviewed and was within normal limits. Lipase was reviewed and was normal. Stool for occult blood was reviewed and was negative. Labs: Laboratory Results - last 24 hr 06/25/24 16:01 WBC 7.2 RBC 6.00 Hgb 17.4 H Hct 49.7 MCV 82.8 MCH 29.0 MCHC 35.0 RDW Std Deviation 36.9 RDW Coeff of Freddy 12.2 Plt Count 308 MPV 9.7 Immature Gran % (Auto) 0.100 Neut % (Auto) 64.3 Lymph % (Auto) 26.5 Travis % (Auto) 6.8 Eos % (Auto) 1.2 Baso % (Auto) 1.1 H Absolute Neuts (auto) 4.6 Absolute Lymphs (auto) 1.91 Nucleated RBC % 0 Sodium 138 Potassium 3.9 Chloride 106 Carbon Dioxide 26.0 Anion Gap 5 BUN 9 Creatinine 1.03 Estim Creat Clear Calc 99.97 Est GFR (MDRD) Af Amer 107 Est GFR (MDRD) Non-Af 88 BUN/Creatinine Ratio 8.7 L Glucose 101 Calcium 9.7 Total Bilirubin 0.30 AST 32 ALT 55 Alkaline Phosphatase 85 Total Protein 8.2 Albumin 4.1 Globulin 4.1 Albumin/Globulin Ratio 1.0 Lipase 26 Treatment and Re-Evaluation :: Patient was given IV fluids. Patient was feeling better on reevaluation. Patient was advised of his findings. Patient was instructed to continue the omeprazole daily. Patient was instructed to follow-up with his primary care physician in 5 to 7 days. Patient was instructed return if worse in any way. Patient understood and was agreeable with the plan. All questions were answered. Discharge Plan Triage Chief Complaint: GI Bleed Other Complaint: Chest Other ED Provider: Beltran Jc Dx/Rx/DC Orders Clinical Impression: Abdominal pain, Hematemesis of unknown cause Instructions: ED Upper GI Bleeding (Stable) Prescriptions: No Action rizatriptan 10 mg tablet 10 mg PO .COMPLEX PRN (Reason: migraine headache) Rx Instructions: 10 mg PO every two hours as needed for headache up to three tablets per day PRN; diazepam [diazepam] 2 MG tablet 2 mg PO TID PRN PRN (Reason: Vertigo) Qty: 10 0RF prednisone 20 mg tablet 60 mg PO DAILY Qty: 12 0RF carboxymethylcellulose sodium [Lubricating Plus] 0.5 % dropperette 1 drp RIGHT EYE Q1H PRN (Reason: dry eye(s)) Qty: 50 0RF Primary Care Provider: Khalida Davis Referrals: Khalida Davis DO [Primary Care Provider] - 5-7 Days Activity Restrictions/Additional Instructions: Continue taking your omeprazole every day until you follow-up with your primary care physician. Print Language: Macanese Disposition Disposition: Home, Self Care
[2024-06-25] MEDS: 0.9% Normal Saline (1000mL) 1,000 ML 999 ML IV (16:01)
[2024-06-25 16:06] LABS: Absolute Lymphocyte Count 1.91 X10^3/uL (0.83-4.51); Absolute Neutrophil Count 4.6 X10^3/uL (2.0-7.7); Basophil# 0.08 X10^3/uL; Basophil% 1.1 % (0-1); Eosinophil# 0.09 X10^3/uL; Eosinophils% 1.2 % (0-5); Hematocrit 49.7 % (40-54); Hemoglobin 17.4 g/dL (13.0-16.5); Lymphocyte # 1.91 X10^3/ul (0.83-4.51); Lymphocyte % 26.5 % (19-41); Mean Corpuscular Volume 82.8 fL (80-94); Mean Platelet Vol. 9.7 fl (6.2-12.0); Monocyte# 0.49 X10^3/uL; Monocyte% 6.8 % (0-10); NRBC Flagged by Analyzer 0 % (0-5); Neutrophil # 4.63 X10^3/uL (2.7-7.7); Neutrophil % 64.3 % (47-70); Platelet Count 308 K/mm3 (150-450); RBC Distribution Width CV 12.2 % (11.6-14.6); RBC Distribution Width SD 36.9 fl (35.1-43.9); White Blood Count 7.2 K/mm3 (4.4-11.0)
[2024-06-25 16:26] LABS: AST(SGOT) 32 U/L (15-37); Alanine Aminotransfer ALT/SGPT 55 U/L (16-61); Albumin, Serum 4.1 g/dL (3.2-5.0); Alkaline Phosphatase 85 U/L (45-117); Anion Gap 5 (5-15); BUN 9 mg/dL (7-18); BUN/Creat Ratio 8.7 RATIO (10-20); Calcium,Total 9.7 mg/dL (8.5-10.1); Chloride 106 mmol/L (98-107); Creatinine, Serum 1.03 mg/dL (0.70-1.30); EST Glomerular Filtration Rate 88 mL/min (>60); Est Glom Filt Rate - Afr Amer 107 mL/min (>60); Estimated Creatinine Clearance 99.97 ml/min; Globulin 4.1 g/dL (2.2-4.2); Glucose 101 mg/dL (74-106); Lipase 26 U/L (13-75); Potassium 3.9 mmol/L (3.5-5.1); Protein, Total 8.2 g/dL (6.4-8.2); Sodium Level 138 mmol/L (136-145)
[2024-06-25 17:00] VITALS: BP 120/77; PULSE 78; RESP 18; O2SAT 98
== END 2024-06-25 17:40 | disposition home or self-care (01) ==
PROVIDERS: Emergency Provider Emergency Medicine; PCP Family Medicine; Visit Provider Emergency Medicine
DX: R10.9 Unspecified abdominal pain (principal); K92.0 Hematemesis; R51.9 Headache, unspecified
CPT/HCPCS: 80053; 82274; 83690; 85025; 96360; 99283; A4216

== ENCOUNTER 2024-12-26 20:50 | Emergency (ER) | payer OTHER, SELFPAY ==
[2024-12-26 20:51] VITALS: BP 119/84; PULSE 99; RESP 15; TEMP 36.2; O2SAT 98; BMI 30.2
--- NOTE | 2024-12-26 21:12 | RAD_ITS ---
PROCEDURE: PELVIS 1 OR 2 VIEWS 12/26/2024 REASON FOR EXAM: INJURY/PAIN TECHNIQUE: PELVIS 1 OR 2 VIEWS COMPARISON: None. FINDINGS: No evidence of acute fracture or dislocation. Alignment is anatomic. Preserved joint spaces. No aggressive osseous lesion. No appreciable soft tissue swelling or radiopaque foreign body. RAD/Pelvis 1 or 2 Views IMPRESSION: No evidence of acute fracture or dislocation. Reading Location: [id number]
--- NOTE | 2024-12-26 22:00 | EX.ED.DYSGE1 ---
HPI History of Present Illness Chief Complaint: Lower Extremity Injury Detail of Chief Complaint: Injury to left groin thigh region Informant: patient Onset/Context/Timing Onset: Today and Days Context: Sudden Onset Timing: Continuous Quality: Pain tightness Location: Anterior proximal left thigh Current Severity: Mild Maximum Severity: Severe Worsened by: certain movements and walking Relieved by: Nothing Associated Symptoms Associated Symptoms: None Narrative Narrative: Patient is a 34-year-old male. He presents with work-related injury. Conveyor belt entangled his left leg. His leg was twisted and abducted. He complains of pain in the right groin area and proximal anterior left thigh. He denies direct trauma to that area. He denies paresthesia, anesthesia or motor weakness. He is not on antithrombotic or anticoagulant. He has no other symptoms or complaints. Prior similar symptoms: No Recent Illness/Hospitalization: No PFSH PFSH Medical History Dyspnea Chest pain, unspecified Vertigo Menieres disease Hypothyroidism Home Medications ?Medication ?Instructions ?Recorded ?Last Taken ?Type rizatriptan 10 mg tablet 10 mg PO .COMPLEX PRN migraine 01/28/21 Unknown History headache diazepam 2 mg tablet 2 mg PO TID PRN PRN Vertigo #10 03/15/21 Unknown Rx TABLETS carboxymethylcellulose sodium 0.5 1 drp RIGHT EYE Q1H PRN dry eye(s) 02/25/24 Unknown Rx % eye drops in a dropperette #50 ea (Lubricating Plus) prednisone 20 mg tablet 60 mg (3 x 20 mg) PO DAILY #12 02/25/24 Unknown Rx TABLETS naproxen 500 mg tablet 500 mg PO BID #14 tabs 12/26/24 Unknown Rx Allergy/AdvReac Type Severity Reaction Status Date / Time No Known Allergies Allergy Verified 12/26/24 20:51 Family History Brother CVA (cerebral vascular accident) Epilepsy Heart disease Asthma History of ulcer disease Father Alcoholism Mother Arthritis Diabetes Uncle Myocardial infarction, Onset Age: 30 Mental disorder Surgical History History of tonsillectomy and adenoidectomy Social History Smoking Status: Never smoker Electronic Cigarette Use: not used second hand exposure: No alcohol intake: former substance use type: former substance user 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: 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 caffeine: No ROS ROS ED Gastrointestinal Gastrointestinal: Denies abdominal pain, nausea or vomiting Genitourinary Genitourinary ED: Denies hematuria Musculoskeletal Musculoskeletal: Reports other Details: Detailed HPI narrative ; Denies arthralgias, back pain, myalgias or neck pain Integumentary Denies Abrasions Neurologic Neurologic: Denies paresthesias or weakness Hematologic/Lymphatic Hematologic/Lymphatic: Reports systems reviewed and no addt'l complaints, except as documented EXAM Physical Exam Const Vital Signs: 12/26/24 20:51 Temperature 97.2 F L Temperature Source Temporal Pulse Rate 99 Respiratory Rate 15 Blood Pressure 119/84 H Blood Pressure Mean 95 Pulse Ox 98 Oxygen Delivery Method Room Air Positive well nourished and well developed Constitutional Narrative: Patient appears comfortable lying still on the examination bed. General Appearance ED: well developed; Negative for pallor HEENT Reports moist mucous membranes HEENT Narrative: Head is atraumatic normocephalic. Ears normal. Nares patent. Eyes PERRL and EOMs intact bilaterally Resp normal respiratory effort Cardio regular rate and regular rhythm GI normal to inspection, nondistended, normoactive bowel sounds, non-tender, non-distended and no masses; Negative for hepatosplenomegaly Palpation: soft Narrative: There is tenderness insertion site of the rectus femoris. There is tenderness along the quadricep muscle and rectus femoris specifically. ABduction and adduction causes him Back/Spine no CVA tenderness Lumbar Spine / Lower Back: Negative for lumbar spinal tenderness Extremity normal to inspection Extremity Narrative: Pain to palpation over the rectus femoris and insertion site of the pelvis. Kt Genesis 4 test causes him pain in the groin area. Gait was observed. He has discomfort with initiation of gait. He is able to walk on heels and toes. He is able to perform 1 legged squat. He has no neurovasc Otomize of that extremity. There is no bruising. There is no swelling. Neuro oriented x3 and CN's II-XII intact bilaterally Sensory Exam: No sensory level loss detected Motor Exam: strength 5/5 throughout Psych mental status grossly normal Skin no rashes or lesions noted, no wounds and skin turgor normal General Skin Exam: elasticity normal; Negative for jaundice or pallor MDM MDM MDM Narrative Medical decision making narrative: X-ray of the pelvis was obtained to determine if there is a pull off fracture of the anterior inferior iliac spine i.e. insertion site of the rectus femoris. Radiography Chest X-Ray - ED: 1 View and Read by ED Physician (There is no edema of the pelvis. Specifically is no avulsion fracture of the inferior anterior iliac spine.) Diagnostic Testing: Clinical Impression(s) from Imaging Studies Pelvis X-Ray 12/26/24 21:12 IMPRESSION: No evidence of acute fracture or dislocation. Reading Location: [facility] Treatment and Re-Evaluation :: Patient received NSAID in the department. He was discharged with prescription for NSAID ice and appropriate work restrictions. This is work-related injury. Discharge Plan Triage Chief Complaint: Lower Extremity Injury ED Provider: Doug Carson Dx/Rx/DC Orders Clinical Impression: Strain of rectus femoris muscle, Difficulty in walking Instructions: ED Muscle Strain, Extremity Prescriptions: New naproxen 500 mg tablet 500 mg PO BID Qty: 14 0RF No Action rizatriptan 10 mg tablet 10 mg PO .COMPLEX PRN (Reason: migraine headache) Rx Instructions: 10 mg PO every two hours as needed for headache up to three tablets per day PRN; diazepam [diazepam] 2 MG tablet 2 mg PO TID PRN PRN (Reason: Vertigo) Qty: 10 0RF prednisone 20 mg tablet 60 mg PO DAILY Qty: 12 0RF carboxymethylcellulose sodium [Lubricating Plus] 0.5 % dropperette 1 drp RIGHT EYE Q1H PRN (Reason: dry eye(s)) Qty: 50 0RF Stand Alone Forms: Work Status Form Primary Care Provider: Khalida Davis Referrals: [facility] [Group of Physicians] - 3-5 Days Khalida Davis DO [Primary Care Provider] - Activity Restrictions/Additional Instructions: 1. Apply ice to your left groin 6-8 times a day for the next 3 to 5 days. 2. No inclines or ladder work 3. Take Naprosyn as prescribed. Print Language: Thai Disposition Disposition: Home, Self Care
[2024-12-26 22:10] VITALS: BP 120/85; PULSE 92; RESP 16; TEMP 36.2; O2SAT 99
--- OUTSIDE RECORDS SUMMARY | 2024-12-26 22:38 | XMS RPT_ITS | CCD ---
Author Organization [facility] Care Team Providers Care Butcher'S Assistant Name Role Phone Boubacar Morrissey Unavailable Carmel Ford PA-c Unavailable Unavailable Elyssa Camargo LPN Unavailable Malys DO, Khalida A Primary Care Provider Malys DO, Khalida A Primary Care Provider MALYS, KHALIDA A Primary Care Unavailable MALYS, KHALIDA A Primary Care Unavailable DINESH MILES E Referring Unavailable MALYS, KHALIDA A Primary Care Unavailable MALYS, KHALIDA A Primary Care Unavailable SANYA TOM Referring Unavailable MALYS, KHALIDA A Primary Care Unavailable Malys, Khalida Referring Unavailable Malys, Khalida Primary Care Unavailable Malys, Khalida Attending Unavailable Malys, Khalida Primary Care Unavailable Ash Beverly Attending Unavailable Jd, Dinesh Attending Unavailable Jd, Dinesh Referring Unavailable Malys, Khalida Primary Care Unavailable Meme Clement Attending Unavailable Malys, Khalida Primary Care Unavailable Malys, Khalida Primary Care Unavailable Beltran Jc Attending Unavailable Malys, Khalida Primary Care Unavailable Malys, Khalida Attending Unavailable Malys, Khalida Referring Unavailable Medications Current Medications Medication Drug Class(es) Dates Sig (Normalized) Sig (Original) diazePAM 5 mg oral tablet (15 sources) Benzodiazepine Start: 10-13-2023 take 1 tablet by mouth every eight hours as needed diazePAM (VALIUM) 5 mg tablet Take 5 mg by mouth every 8 hours as needed (vertigo). 10/13/2023 Active Start: 03-15-2021 take 2 mg by mouth t hree times daily as needed Diazepam Active 2 MG PO 3 TIMES DAILY NEEDED March 15, 2021 12:00am Start: 12-02-2013 End: 02-09-2015 take 1 tablet by mouth once daily as needed DIAZEPAM 2 MG TABS One tablet by mouth daily as needed vertigo, avoid driving or operating machine under the influence of medication. DIAZEPAM [id number] Mo Neri MD furosemide 20 mg oral tablet (6 sources) Loop Diuretic Start: 03-24-2021 take 1 tablet by mouth once daily furosemide (LASIX) 20 mg tablet Take 1 tablet by mouth once daily. 30 tablet 5 03/24/2021 Active meclizine hydrochloride 25 mg oral tablet (7 sources) Antiemetic Start: 09-02-2019 meclizine (ANTIVERT) 25 mg tab Meclizine Meclizine Hcl Active 25 MG Q8H September 02, 2019 2:11pm 09-02-2019 [facility] ([id number]) 09/02/2019 Active Start: 09-02-2019 End: 01-28-2021 take 25 mg by mouth every eight hours Meclizine Discontinued 25 MG PO Q8H September 02, 2019 2:11pm January 28, 2021 2:38pm omeprazole 40 mg delayed release oral capsule (1 source) Proton Pump Inhibitor take 1 capsule by mouth once daily omeprazole (PRILOSEC) 40 mg capsule Take 1 capsule by mouth once daily. Active potassium chloride 10 meq extended release oral tablet (6 sources) Start: take 1 tablet by mouth once daily at breakfast potassium chloride (K-TAB) 10 mEq tablet Take 1 tablet by mouth daily with breakfast. 30 tablet 5 03/24/2021 Active rizatriptan 10 mg oral tablet (3 sources) Serotonin-1b and Serotonin-1d Receptor Agonist Start: End: take 3 tablets by mouth once daily as needed Rizatriptan Active 10 MG PO .COMPLEX January 28, 2021 2:38pm 10 mg PO every two hours as needed for headache up to three tablets per day PRN; 72 hr scopolamine 0.0139 mg/hr transdermal system (6 sources) Anticholinergic scopolamine (TRANSDERM-SCOP) patch 1.5 mg/72 hr (1 mg over 3 days) Apply 1 Patch as directed every 72 hours. Active 24 hr verapamil hydrochloride 120 mg extended release oral capsule (6 sources) Calcium Channel Stephanie take 0.5 tablet by mouth once daily at bedtime verapamil ER (VERELAN) 120 mg 24 hr capsule Take 60 mg by mouth daily at bedtime. Patient is taking 1/2 tablet at bedtime. Active Completed/Discontinued Medications Medication Drug Class(es) Dates Sig (Normalized) Sig (Original) citalopram 10 mg oral tablet (1 source) Serotonin Reuptake Inhibitor Start: 09-14-2020 End: 10-22-2020 take 10 mg by mouth once daily Citalopram Discontinued 10 MG PO DAILY September 14, 2020 12:00am October 22, 2020 8:26pm cyclobenzaprine hydrochloride 10 mg oral tablet (16 sources) Muscle Relaxant Start: 01-25-2016 take 1 tablet by mouth once daily as needed for pain CYCLOBENZAPRINE HCL 10 MG TABS One tablet by mouth daily at night as needed for muscle pain CYCLOBENZAPRINE HCL [id number] Edwin Partida DO Start: 02-09-2015 End: 12-08-2015 take 1 tablet by mouth once daily at bedtime CYCLOBENZAPRINE HCL 10 MG TABS 1 po daily at bedtime CYCLOBENZAPRINE HCL [id number] Edwin Partida DO eszopiclone 2 mg oral tablet (8 sources) Start: 07-01-2014 End: 02-09-2015 take 1 tablet by mouth once daily as needed ESZOPICLONE 2 MG TABS One tablet by mouth daily every night as needed insomnia ESZOPICLONE [id number] Mo Neri MD hydroCHLOROthiazide 12.5 mg oral capsule (5 sources) Thiazide Diuretic Start: 05-05-2017 End: 09-14-2020 take 12.5 mg by mouth once daily Hydrochlorothiazide Discontinued 12.5 MG PO DAILY May 05, 2017 1:00am September 14, 2020 10:48am Start: 05-06-2015 take 1 tablet by vielka th once daily HYDROCHLOROTHIAZIDE 12.5 MG TABS 1 po daily HYDROCHLOROTHIAZIDE [id number] Edwin Partida DO hydroCHLOROthiazide 25 mg / triamterene 37.5 mg oral capsule (8 sources) Potassium-sparing Diuretic, Thiazide Diuretic Start: 12-02-2013 End: 07-01-2014 take 1 tablet by mouth once daily TRIAMTERENE-HCTZ 37.5-25 MG CAPS One tablet by mouth daily TRIAMTERENE-HCTZ [id number] Mo Neri MD levothyroxine sodium 0.025 mg oral tablet (1 source) l-Thyroxine Start: 11-17-2020 End: 01-28-2021 take 25 ug by mouth once daily Levothyroxine Discontinued 25 MCG PO DAILY November 17, 2020 12:00am January 28, 2021 2:38pm meloxicam 15 mg oral tablet (12 sources) Nonsteroidal Anti-inflammatory Drug Start: 02-09-2015 End: 12-08-2015 take 1 tablet by mouth once daily MELOXICAM 15 MG TABS 1 po daily x 2 weeks MELOXICAM [id number] Khalida Davis DO ondansetron 4 mg disintegrating oral tablet (2 sources) Serotonin-3 Receptor Antagonist Start: 09-02-2019 End: 09-14-2020 take 8 mg by mouth every eight hours as needed Ondansetron Discontinued 8 MG PO EVERY 8 HOURS NEEDED September 02, 2019 12:00am September 14, 2020 10:48am Start: 10-17-2018 End: 09-14-2020 take 4 mg by mouth every six hours as needed Ondansetron Discontinued 4 MG PO EVERY 6 HOURS NEEDED October 17, 2018 7:38pm September 14, 2020 10:48am sertraline 50 mg oral tablet (12 sources) Serotonin Reuptake Inhibitor Start: 12-08-2015 take 2 tablets by mouth once daily SERTRALINE HCL 100 MG TABS 2 tablets by mouth daily SERTRALINE HCL [id number] Edwin Partida DO Start: 12-08-2015 take 1 tablet by vielka th once daily SERTRALINE HCL 100 MG TABS One tablet by mouth daily SERTRALINE HCL [id number] Edwin Partida DO Start: 12-08-2015 take 1 tablet by vielka th once daily SERTRALINE HCL 50 MG TABS One tablet by mouth daily SERTRALINE HCL [id number] Edwin Partida DO SUMAtriptan 50 mg oral tablet (7 sources) Serotonin-1b and Serotonin-1d Receptor Agonist Start: 09-14-2020 End: 09-14-2020 take 50 mg by mouth once daily Sumatriptan Succinate Discontinued 50 MG PO DAILY September 14, 2020 12:00am September 14, 2020 8:24pm traZODone hydrochloride 50 mg oral tablet (8 sources) Serotonin Reuptake Inhibitor Start: 12-24-2013 End: 01-08-2014 take 1-2 tablets by mouth once daily as needed TRAZODONE HCL 50 MG TABS 1-2 tablets by mouth every night as needed for insomnia TRAZODONE HCL [id number] Mo Neri MD venlafaxine 25 mg oral tablet (4 sources) Serotonin and Norepinephrine Reuptake Inhibitor Start: 04-07-2017 VENLAFAXINE HCL 25 MG TABS as directed VENLAFAXINE HCL [id number] Vidal GARDUNO zolpidem tartrate 5 mg oral tablet (8 sources) gamma-Aminobutyric Acid-ergic Agonist Start: 01-08-2014 End: 07-01-2014 take 1 tablet by mouth once daily as needed ZOLPIDEM TARTRATE 5 MG TABS One tablet by mouth daily every night as needed insomina ZOLPIDEM TARTRATE [id number] Mo Neri MD Problems Active Problems Problem Classification Problem Date Documented Da te Episodic/Chronic Abdominal pain (3 sources) Abdominal pain; Translations: [Unspecified abdominal pain] Onset: 05-04-2017 05-04-2017 Episodic Anxiety disorders (1 source) Anxiety; Translations: [Anxiety disorder, unspecified] Chronic Conditions associated with dizziness or vertigo (7 sources) Meniere's disease; Translations: [Meniere's disease, unspecified ear] Onset: 12-02-2013 12-02-2013 Chronic Conditions associated with dizziness or vertigo (12 sources) Dizziness; Translations: [Dizziness and giddiness] Onset: 07-14-2020 07-14-2020 Episodic Headache; including migraine (1 source) Migraine without aura; Translations: [Migraine without aura, not intractable, without status migrainosus] Chronic Mood disorders (5 sources) Depressive disorder; Translations: [Depression] Onset: 12-08-2015 12-08-2015 Chronic Nausea and vomiting (2 sources) Vomiting; Translations: [Vomiting, unspecified] 06-25-2024 Episodic Nonspecific chest pain (1 source) Chest pain; Translations: [Chest pain, unspecified] Episodic Other injuries and conditions due to external causes (1 source) Injury of right hand; Translations: [Unspecified injury of right wrist, hand and finger(s), initial encounter] 10-19-2023 Episodic Other lower respiratory disease (1 source) Dyspnea; Translations: [Dyspnea, unspecified] Episodic Other nervous system disorders (1 source) Numbness of face; Translations: [Anesthesia of skin] 02-25-2024 Episodic Other screening for suspected conditions (not mental disorders or infectious disease) (1 source) Thyroid hormone tests abnormal; Translations: [Other specified abnormal findings of blood chemistry] Episodic Regional enteritis and ulcerative colitis (6 sources) Ulcerative colitis; Translations: [Ulcerative colitis, unspecified, without complications] 06-14-2021 Chronic Residual codes; unclassified (1 source) Failed encounter; Translations: [No-show for appointment] 06-18-2024 Episodic Spondylosis; intervertebral disc disorders; other back problems (5 sources) Neck pain; Translations: [Radiculopathy, cervical region] Onset: 02-09-2015 02-09-2015 Episodic Thyroid disorders (1 source) Hypothyroidism; Translations: [Hypothyroidism, unspecified] Chronic Past or Other Problems Problem Classification Problem Date Documented Da te Episodic/Chronic Open wounds of extremities (4 sources) Laceration without foreign body of left middle finger without damage to nail, initial encounter; Translations: [Laceration without foreign body of left middle finger without damage to nail, initial encounter] Onset: 04-07-2017 04-07-2017 Episodic Other injuries and conditions due to external causes (4 sources) Laceration - injury; Translations: [Injury, unspecified] Onset: 04-07-2017 04-07-2017 Episodic Other non-traumatic joint disorders (4 sources) Pain in wrist; Translations: [Pain in right wrist] Onset: 02-09-2015 02-09-2015 Episodic Residual codes; unclassified (4 sources) Insomnia; Translations: [Insomnia, unspecified] Onset: 01-02-2014 01-02-2014 Episodic Residual codes; unclassified (1 source) Edema, unspecified; Translations: [Edema, unspecified] Onset: 03-15-2024 Episodic Residual codes; unclassified (1 source) Altered mental status, unspecified; Translations: [Altered mental status, unspecified] Onset: 01-24-2024 Episodic Spondylosis; intervertebral disc disorders; other back problems (4 sources) Cervical radiculopathy; Translations: [Radiculopathy, cervical region] Onset: 01-25-2016 Resolved: 02-24-2016 01-25-2016 Chronic Results Test Name Value Interpretation Reference Range Facility CBC W/Diff, Automatedon 01-0 Absolute Lymph 1.91 X10 3/uL Normal 0.83-4.51 [facility] Comment on above: Performed By: #### L 501.2450, M100.7900, L100.0100, L500.4050 #### [facility] [address] [place], [address] Absolute Neut 4.6 X10 3/uL Normal 2.0-7.7 [facility] Comment on above: Performed By: #### L 501.2450, M100.7900, L100.0100, L500.4050 #### [facility] [address] [place], [address] Basophils/100 WBC (Bld) 1.1 % High 0-1 [facility] Comment on above: Performed By: #### L 501.2450, M100.7900, L100.0100, L500.4050 #### [facility] [address] [place], [address] Eosinophils/100 WBC (Bld) 1.2 % Normal 0-5 [facility] Comment on above: Performed By: #### L 501.2450, M100.7900, L100.0100, L500.4050 #### [facility] [address] [place], [address] Erythrocyte distribution width (RBC) [Ratio] 12.2 % Normal 11.6-14.6 [facility] Comment on above: Performed By: #### L 501.2450, M100.7900, L100.0100, L500.4050 #### [facility] [address] [place], [address] Hematocrit (Bld) [Volume fraction] 49.7 % Normal 40-54 [facility] Comment on above: Performed By: #### L 501.2450, M100.7900, L100.0100, L500.4050 #### [facility] [address] [place], [address] Hemoglobin (Bld) [Mass/Vol] 17.4 g/dL High 13.0-16.5 [facility] Comment on above: Performed By: #### L 501.2450, M100.7900, L100.0100, L500.4050 #### [facility] [address] [place], [address] IG% 0.100 Normal 0.0-0.9 [facility] Comment on above: Result Comment: IG% - Immature Granulocytes (promyelocytes, myelocytes and metamyelocytes) > 1% indicates that a LEFT SHIFT is Present. Performed By: #### L 501.2450, M100.7900, L100.0100, L500.4050 #### [facility] [address] [place], [address] Lymphocytes/100 WBC (Bld) 26.5 % Normal 19-41 [facility] Comment on above: Performed By: #### L 501.2450, M100.7900, L100.0100, L500.4050 #### [facility] [address] [place], [address] MCH (RBC) [Entitic mass] 29.0 pg Normal 27.0-32.0 [facility] Comment on above: Performed By: #### L 501.2450, M100.7900, L100.0100, L500.4050 #### [facility] [address] [place], [address] MCHC (RBC) [Mass/Vol] 35.0 g/dL Normal 32-36 [facility] Comment on above: Performed By: #### L 501.2450, M100.7900, L100.0100, L500.4050 #### [facility] [address] [place], [address] MCV (RBC) [Entitic vol] 82.8 fL Normal 80-94 [facility] Comment on above: Performed By: #### L 501.2450, M100.7900, L100.0100, L500.4050 #### [facility] [address] [place], [address] Monocytes/100 WBC (Bld) 6.8 % Normal 0-10 [facility] Comment on above: Performed By: #### L 501.2450, M100.7900, L100.0100, L500.4050 #### [facility] [address] [place], [address] Neutrophils/100 WBC (Bld) 64.3 % Normal 47-70 [facility] Comment on above: Performed By: #### L 501.2450, M100.7900, L100.0100, L500.4050 #### [facility] [address] [place], [address] Nucleated RBC (Bld) [#/Vol] 0 10*3/uL Normal 0-5 [facility] Comment on above: Performed By: #### L 501.2450, M100.7900, L100.0100, L500.4050 #### [facility] [address] [place], [address] Platelet mean volume (Bld) [Entitic vol] 9.7 fL Normal 6.2-12.0 [facility] Comment on above: Performed By: #### L 501.2450, M100.7900, L100.0100, L500.4050 #### [facility] [address] [place], [address] Platelets (Bld) [#/Vol] 308 10*3/uL Normal 150-450 [facility] Comment on above: Performed By: #### L 501.2450, M100.7900, L100.0100, L500.4050 #### [facility] [address] [place], [address] RBC (Bld) [#/Vol] 6.00 10*6/uL Normal 4.6-6.2 [facility] Comment on above: Performed By: #### L 501.2450, M100.7900, L100.0100, L500.4050 #### [facility] [address] [place], [address] RDW SD 36.9 fl Normal 35.1-43.9 [facility] Comment on above: Performed By: #### L 501.2450, M100.7900, L100.0100, L500.4050 #### [facility] [address] [place], [address] WBC (Bld) [#/Vol] 7.2 10*3/uL Normal 4.4-11.0 [facility] Comment on above: Performed By: #### L 501.2450, M100.7900, L100.0100, L500.4050 #### [facility] [address] [place], [address] CNOVon 06-25-2024 CNOV Office Visit (UCWSTR) BENITOEFE MATTA ([id number]) 1990 M Date Time Provider Department 06/25/24 12:00 PM HELEN OCAMPO During your visit today, we recorded the following information about you: Temperature Pulse Respiration Blood pressure 96.8 degrees 92/minute 18/minute 124/86 Weight 80 kg Estelita Sauceda APRN.AUTOMATION QA TESTER 06/25/2024 12:44 PM Signed Came in complaining of stomach acid over the last year that feels like it is going up into his throat. Patient says it is getting significantly worse over the last month. Patient says last night he started vomiting a dark color. He said it could look similar to coffee grounds. At this time patient is being referred to the emergency room for full evaluation. Patient agreeable will take himself now. Allergies As of Date: 06/25/2024 (No Known Allergies) Date Reviewed: 06/25/2024 Reviewed by: Ana Hammonds LPN - Fully Assessed Reason for Visit: Nausea AND Vomiting [237] Cmt: States he threw up possible blood last night dark red in color, puked x 4 last evening, states he has had a headace Primary Visit Diagnosis:Vomiting without nausea, unspecified vomiting type [R11.11] Prescriptions as of 06/25/2024 - omeprazole (PRILOSEC) 40 mg capsule Take 1 capsule by mouth once daily. - diazePAM (VALIUM) 5 mg tablet Take 5 mg by mouth every 8 hours as needed (vertigo). - meclizine (ANTIVERT) 25 mg tab Meclizine Meclizine Hcl Active 25 MG Q8H September 02, 2019 2:11pm 09-02-2019 [facility] ([id number]) - furosemide (LASIX) 20 mg tablet Take 1 tablet by mouth once daily. - potassium chloride (K-TAB) 10 mEq tablet Take 1 tablet by mouth daily with breakfast. - verapamil ER (VERELAN) 120 mg 24 hr capsule Take 60 mg by mouth daily at bedtime. Patient is taking 1/2 tablet at bedtime. - SUMAtriptan (IMITREX) 50 mg tablet Take 50 mg by mouth as needed. - scopolamine (TRANSDERM-SCOP) patch 1.5 mg/72 hr (1 mg over 3 days) Apply 1 Patch as directed every 72 hours. Problem List As Of Date 06/25/2024 Noted Resolved Ulcerative colitis (HCC) [K51.90] Vertigo [R42] 07/14/2020 Encounter Status:Closed by ESTELITA SAUCEDA on 06/25/24 Normal [facility] Metabolic Prof ilon 06-25-2024 Albumin [Mass/Vol] 4.1 g/dL Normal 3.2-5.0 [facility] Comment on above: Performed By: #### L 501.2450, M100.7900, L100.0100, L500.4050 #### [facility] [address] [place], [address] Albumin/Globulin [Mass ratio] 1.0 {ratio} Normal 0.9-2.4 [facility] Comment on above: Performed By: #### L 501.2450, M100.7900, L100.0100, L500.4050 #### [facility] [address] [place], [address] ALK P 85 U/L Normal 45-117 [facility] Comment on above: Performed By: #### L 501.2450, M100.7900, L100.0100, L500.4050 #### [facility] [address] [place], [address] ALT [Catalytic activity/Vol] 55 U/L Normal 16-61 [facility] Comment on above: Performed By: #### L 501.2450, M100.7900, L100.0100, L500.4050 #### [facility] [address] [place], [address] AST [Catalytic activity/Vol] 32 U/L Normal 15-37 [facility] Comment on above: Performed By: #### L 501.2450, M100.7900, L100.0100, L500.4050 #### [facility] [address] [place], [address] Bilirubin [Mass/Vol] 0.30 mg/dL Normal 0.20-1.00 [facility] Comment on above: Result Comment: For patients on eltrombopag therapy, use of Dimension Butler TBIL is not recommended. Performed By: #### L 501.2450, M100.7900, L100.0100, L500.4050 #### [facility] [address] [place], [address] BUN/CRE 8.7 RATIO Low 10-20 [facility] Comment on above: Performed By: #### L 501.2450, M100.7900, L100.0100, L500.4050 #### [facility] [address] [place], [address] CA,Total 9.7 mg/dL Normal 8.5-10.1 [facility] Comment on above: Performed By: #### L 501.2450, M100.7900, L100.0100, L500.4050 #### [facility] [address] [place], [address] Chloride [Moles/Vol] 106 mmol/L Normal 98-107 [facility] Comment on above: Performed By: #### L 501.2450, M100.7900, L100.0100, L500.4050 #### [facility] [address] [place], [address] CO2 [Moles/Vol] 26.0 mmol/L Normal 21.0-32.0 [facility] Comment on above: Performed By: #### L 501.2450, M100.7900, L100.0100, L500.4050 #### [facility] [address] [place], [address] Creatinine [Mass/Vol] 1.03 mg/dL Normal 0.70-1.30 [facility] Comment on above: Result Comment: The validity of the calculated GFR GFRAA in patients over 70 years has not been determined. Clinical correlation is essential. Performed By: #### L 501.2450, M100.7900, L100.0100, L500.4050 #### [facility] [address] [place], [address] ECRCL 99.97 ml/min Normal [facility] Comment on above: Performed By: #### L 501.2450, M100.7900, L100.0100, L500.4050 #### [facility] [address] [place], [address] EST GFR - AA 107 mL/min Normal >60 [facility] Comment on above: Result Comment: Afri can [place] GFR Calc Performed By: #### L 501.2450, M100.7900, L100.0100, L500.4050 #### [facility] [address] [place], [address] GAP 5 Normal 5-15 [facility] Comment on above: Performed By: #### L 501.2450, M100.7900, L100.0100, L500.4050 #### [facility] [address] [place], [address] GFR/1.73 sq M.predicted among non-blacks MDRD (S/P/Bld) [Vol rate/Area] 88 mL/min/{1.73_m2} Normal >60 [facility] Comment on above: Result Comment: Non- GFR Calc Performed By: #### L 501.2450, M100.7900, L100.0100, L500.4050 #### [facility] [address] [place], [address] Globulin (S) [Mass/Vol] 4.1 g/dL Normal 2.2-4.2 [facility] Comment on above: Performed By: #### L 501.2450, M100.7900, L100.0100, L500.4050 #### [facility] [address] [place], [address] Glucose [Mass/Vol] 101 mg/dL Normal 74-106 [facility] Comment on above: Result Comment: Fast ing Glucose result from 100 to 125 mg/dL suggests IMPAIRED HOMEOSTASIS per A.D.A. criteria. Performed By: #### L 501.2450, M100.7900, L100.0100, L500.4050 #### [facility] [address] [place], [address] Potassium [Moles/Vol] 3.9 mmol/L Normal 3.5-5.1 [facility] Comment on above: Performed By: #### L 501.2450, M100.7900, L100.0100, L500.4050 #### [facility] [address] [place], [address] Sodium [Moles/Vol] 138 mmol/L Normal 136-145 [facility] Comment on above: Performed By: #### L 501.2450, M100.7900, L100.0100, L500.4050 #### [facility] [address] [place], [address] T PROT 8.2 g/dL Normal 6.4-8.2 [facility] Comment on above: Performed By: #### L 501.2450, M100.7900, L100.0100, L500.4050 #### [facility] [address] [place], [address] Urea nitrogen [Mass/Vol] 9 mg/dL Normal 7-18 [facility] Comment on above: Performed By: #### L 501.2450, M100.7900, L100.0100, L500.4050 #### [facility] [address] [place], [address] Emergency Department Summary on 06-25-2024 Emergency Department Summary [facility] Medical Records Department [address] [place] [address] Emergency Department Summary 06/25/24 MR#: [id number] Acct: [id number] Name: EFE AGARWAL Rep #: [id number] : 1990 34 From: Beltran Jc DO PCP: Dr. Khalida Davis DO Status:DEP ER Location: ED HPI HPI - GI History of Present Illness Chief Complaint: GI Bleed Informant: patient Abdominal Pain/Flank Pain Onset: Yesterday Context: Sudden Onset Timing: Continuous Quality: Burning Location: Epigastric Worsened by: Nothing Relieved by: Antacids (Omeprazole) Nausea/Vomiting/Emes is GI Symptom: Positive for Nausea and Vomiting Onset: Today Quality: Positive for Hematemesis Diarrhea/Melena/Bird tochezia GI Symptom: Negative for Diarrhea, Melena or Hematochezia Associated Symptoms Associated Symptoms: Negative for Dysuria, Frequency or Hematuria Narrative Narrative: Patient presents with abdominal pain, nausea, and vomiting that began last night. Patient states that he vomited up some dark blood early this morning. Patient states he has not vomited since that time. Patient describes some pain over his epigastric area. Patient describes it as burning. Patient states it is constant. Patient states it began suddenly last night. Patient denies any diarrhea, melena, or hematochezia. Patient denies any urinary symptoms. [facility] Medical History Dyspnea Chest pain, unspecified Vertigo Menieres disease Hypothyroidism Home Medications ???Medication ???Instructions ???Recorded ???Last Taken ???Type rizatriptan 10 mg tablet 10 mg PO .COMPLEX PRN migraine 01/28/21 Unknown History headache diazepam 2 mg tablet 2 mg PO TID PRN PRN Vertigo #10 03/15/21 Unknown Rx TABLETS carboxymethylcellulo se sodium 0.5 1 drp RIGHT EYE Q1H PRN dry eye(s) 09/08/24 Unknown Rx % eye drops in a dropperette #50 ea (Lubricating Plus) prednisone 20 mg tablet 60 mg (3 x 20 mg) PO DAILY #12 02/25/24 Unknown Rx TABLETS Allergy/AdvReac Type Severity Reaction Status Date / Time No Known Allergies Allergy Verified 06/25/24 13:10 Family History Brother CVA (cerebral vascular accident) Epilepsy Heart disease Asthma History of ulcer disease Father Alcoholism Mother Arthritis Diabetes Uncle Myocardial infarction, Onset Age: 30 Mental disorder Surgical History History of tonsillectomy and adenoidectomy Social History Smoking Status: Never smoker Electronic Cigarette Use: not used second hand exposure: No alcohol intake: former substance use type: former substance user 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: 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 caffeine: No ROS ROS ED Constitutional Constitutional ED: Denies chills or fever(s) Eyes Eyes: Denies blurry vision or change in vision ENT ENT ED: Denies rhinorrhea or sore throat Cardiovascular Cardiovascular: Denies chest pain or palpitations Respiratory/Chest Respiratory/Chest: Denies cough or dyspnea Gastrointestinal Gastrointestinal: Reports abdominal pain, nausea and vomiting; Denies diarrhea or melena Genitourinary Genitourinary ED: Denies dysuria or hematuria Musculoskeletal Musculoskeletal: Denies back pain or neck pain Integumentary Denies abscess or rash Neurologic Neurologic: Reports headache(s); Denies weakness Allergic/Immunologic Allergic/Immunologic ED: Denies mouth swelling or urticaria EXAM Physical Exam Const Vital Signs: 06/25/24 13:10 06/25/24 17:00 Temperature 97 F L Temperature Source Temporal Pulse Rate 88 78 Respiratory Rate 18 18 Blood Pressure 126/98 H 120/77 Blood Pressure Mean 107 91 Pulse Ox 98 98 Oxygen Delivery Method Room Air Room Air Positive well nourished and well developed General Appearance ED: well developed HEENT Reports moist mucous membranes Neck supple and no JVD Resp normal respiratory effort and clear to auscultation bilaterally Cardio regular rate and regular rhythm GI non-distended Palpation: soft and tender epigastric; Negative for guarding or rebound tenderness present Extremity General Extremety ED: Negative for edema or tenderness General Extremity: Negative for edema Neuro CN's II-XII intact bilaterally, moves all extremities and no sensory deficits noted Sensorium / Orientation: alert Motor Exam: strength 5/5 throughout Psych mental status grossly normal and thought process normal MDM MDM MDM Narrative Medical decision making narrative: Differential diagnosis includes peptic ulcer disease, upper gastrointestinal bleeding, pancreatitis, duodenal ulcer, cholecystitis, choleli (more content not included)... Normal [facility] Lipaseon 06-25-2024 Lipase [Catalytic activity/Vol] 26 U/L Normal 13-75 [facility] Comment on above: Result Comment: Royce graham note: LIPASE revised reference range effective 22. New Lipase methodology. Expected to produce lower values than the previous assay method. NEW Reference Range: 13 - 75 U/L Performed By: #### L 501.2450, M100.7900, L100.0100, L500.4050 #### [facility] [address] [place], [place], [id number] Stool Occult Blood iFOBon STOB Negative Normal [facility] Comment on above: Performed By: #### L 501.2450, M100.7900, L100.0100, L500.4050 #### [facility] [address] [place], [address] CNOVon 06-18-2024 CNOV Office Visit (CODY) EFE AGARWAL ([id number]) 1990 M Date Time Provider Department 06/18/24 7:30 AM DARREN HERNANDEZ During your visit today, we recorded the following information about you: Darren Hernandez R Ac 06/18/2024 9:52 AM Signed No show Referring Provider: SELF [200] Allergies As of Date: 06/18/2024 (No Known Allergies) Date Reviewed: 10/19/2023 Reviewed by: Sanya Tom APRN.AUTOMATION QA TESTER - Fully Assessed Reason for Visit: No Show [1558] Primary Visit Diagnosis:No-show for appointment [Z91.199] Prescriptions as of 06/18/2024 - diazePAM (VALIUM) 5 mg tablet - meclizine (ANTIVERT) 25 mg tab Meclizine Meclizine Hcl Active 25 MG Q8H September 02, 2019 2:11pm 09-02-2019 [facility] ([id number]) - furosemide (LASIX) 20 mg tablet Take 1 tablet by mouth once daily. - potassium chloride (K-TAB) 10 mEq tablet Take 1 tablet by mouth daily with breakfast. - verapamil ER (VERELAN) 120 mg 24 hr capsule Take 60 mg by mouth daily at bedtime. Patient is taking 1/2 tablet at bedtime. - SUMAtriptan (IMITREX) 50 mg tablet Take 50 mg by mouth as needed. - scopolamine (TRANSDERM-SCOP) patch 1.5 mg/72 hr (1 mg over 3 days) Apply 1 Patch as directed every 72 hours. Problem List As Of Date 06/18/2024 Noted Resolved Ulcerative colitis (HCC) [K51.90] Vertigo [R42] 07/14/2020 Encounter Status:Closed by DARREN HERNANDEZ on 06/18/24 [facility] Echo Completeon 04-05-2024 Echo [facility] [address] [place] [id number] Echo Complete 04/05/24 1500 MR#: [id number] Acct: [id number] Name: EFE AGARWAL Rep #: [id number] : 1990 34 From: Ash Beverly MD Attending Dr: Dr. Khalida Dvais DO Status: REG CL I Ordering Dr: Khalida Davis DO Date: 04/05/24 Location: [facility] Sex: M C Admitted: Reason For Study: DYSPNEA, DIZZINESS Procedure This was a 2D Doppler, Color Flow transthoracic echocardiogram. Exam performed in department. Left Ventricle Normal LV size. Left ventricular systolic function is normal. The left ventricular ejection fraction is 60 %. Stage 1 diastolic dysfunction. No regional wall motion abnormalities noted. Right Ventricle Normal RV size. Normal systolic function. Atria Normal left atrium. Normal right atrium. Mitral Valve Normal mitral valve. Tricuspid Valve Normal tricuspid valve. Aortic Valve Trisinus/trileaflet aortic valve. Pulmonic Valve Normal pulmonic valve. Great Vessels Normal aortic root. The pulmonary artery is normal size. Normal inferior vena cava. Pericardium/Pleural No pericardial effusion. MMode/2D Measurements Calculations LVIDd: 4.3 cm IVSd: 0.75 cm Ao root diam: 3.2 cm LVIDs: 3.1 cm LVPWd: 0.89 cm RVDd: 3.2 cm FS: 27.6 % _ LAV(MOD-bp): 30.0 ml LVAd ap4: 23.2 cm2 LVAd ap2: 21.3 cm2 LAV(MOD-bp) Indexed: 16.9 ml/m2 LVLd ap4: 7.1 cm LVLd ap2: 7.8 cm LAV(MOD-sp2): 27.6 ml EDV(MOD-sp4): 63.7 ml EDV(MOD-sp2): 51.9 ml LAV(MOD-sp4): 33.2 ml EDV(sp4-el): 64.1 ml EDV(sp2-el): 49.3 ml LVAs ap4: 12.3 cm2 LVAs ap2: 11.6 cm2 LVLs ap4: 5.1 cm LVLs ap2: 6.1 cm ESV(MOD-sp4): 25.3 ml ESV(MOD-sp2): 19.9 ml ESV(sp4-el): 24.9 ml ESV(sp2-el): 18.8 ml EF(MOD-sp4): 60.3 % EF(MOD-sp2): 61.6 % EF(sp4-el): 61.1 % _ SV(MOD-sp4): 38.4 ml SV(MOD-sp2): 32.0 ml SV(sp4-el): 39.2 ml _ LA dimension(2D): 3.3 cm LA A4 area: 13.2 cm2 RA A4 area: 13.6 cm2 _ TAPSE: 2.1 cm Time Measurements MV dec time: 0.20 sec Doppler Measurements Calculations MV E max clement: 64.8 cm/sec Lat Peak E' Clement: 10.2 cm/sec Med Peak E' Clement: 9.0 cm/sec MV A max clement: 66.6 cm/sec E/E' lat: 6.4 E/E' med: 7.2 MV E/A: 0.97 _ MV V2 max: 79.5 cm/sec MV P1/2t max clement: 66.1 cm/sec Ao V2 max: 121.5 cm/sec MV max P.5 mmHg MV P1/2t: 45.1 msec Ao max P.9 mmHg MV V2 mean: 51.8 cm/sec MV dec slope: 429.5 cm/sec2 Ao V2 mean: 90.0 cm/sec MV mean P.2 mmHg Ao mean P.5 mmHg MV V2 VTI: 13.9 cm MVA(P1/2t): 4.9 cm2 Ao V2 VTI: 20.0 cm AV (velocity ratio): 0.94 _ LV V1 max: 108.0 cm/sec PA V2 max: 101.9 cm/sec LV V1 max P.7 mmHg PA V2 mean: 76.2 cm/sec LV V1 mean P.4 mmHg LV V1 mean: 73.7 cm/sec LV V1 VTI: 18.9 cm ECHO/Echo Complete Interpretation Summary Normal LV size. Left ventricular systolic function is normal. The left ventricular ejection fraction is 60 %. Stage 1 diastolic dysfunction. Structurally normal valves. Ordering Physician: Khalida Davis Referring Physician: Khalida Davis Performed By: Mae Rangel, RDCS, RVT 04/08/241857 Date Ash Beverly MD CC: Dr. Khalida Davis DO Date Dictated: 04/05/24 1500 Date Transcribed: 04/08/241857 Industrial Recruiter: Signed Normal [facility] MR Brain WO and W contrast Nan Marinelli 03-11-2024 IMPRESSION: Normal MRI of the brain. Industrial Recruiter: LENCHO Transcribe Date/Time: Mar 11 2024 1:52P Dictated by : GAIL GRIJALVA MD This examination was interpreted and the report reviewed and electronically signed by: GAIL GRIJALVA MD on Mar 11 2024 1:54PM [facility] DIVISION OF RADIOLOGY * * *Final Report* * * DATE OF EXAM: Mar 11 2024 1:19PM [facility] 0295 - MRI BRAIN WO/W IVCON / PROCEDURE REASON: brain [place] * * * * Physician Interpretation * * * * EXAMINATION: MRI BRAIN WO/W IVCON CLINICAL HISTORY: Syncope TECHNIQUE: Routine brain MRI protocol without and with contrast including diffusion images. MQ: MRBWOW_2 Contrast: 15 mL Dotarem IV COMPARISON: None. RESULT: Acute Change: There is no evidence of restricted diffusion to suggest an acute infarct. Hemorrhage: No evidence of intracranial hemorrhage. Mass Lesion/ Mass Effect: No evidence of an intracranial mass or extra-axial fluid collection. No abnormal parenchymal or leptomeningeal enhancement is noted following contrast administration. No mass effect. Chronic Change: The white matter is within normal limits of signal intensity for age. Parenchyma: No significant volume loss for age. The brain parenchyma is otherwise within normal limits of signal intensity and morphology. Ventricles: Normal caliber and morphology. Skull Base: Hypothalamic and pituitary region are grossly normal. Craniocervical junction is normal. No significant marrow replacement process. Vasculature: The major intracranial arteries and dural venous sinuses are patent. Other: The visualized paranasal sinuses and mastoid air cells are clear. The orbits and extracranial soft tissues are unremarkable. DIVISION OF RADIOLOGY Provider, [facility] [place] - 03/11/2024 * * *Final Report* * * DATE OF EXAM: Mar 11 2024 1:19PM [facility] 5 - MRI BRAIN WO/W IVCON / PROCEDURE REASON: brain [place] * * * * Physician Interpretation * * * * EXAMINATION: MRI BRAIN WO/W IVCON CLINICAL HISTORY: Syncope TECHNIQUE: Routine brain MRI protocol without and with contrast including diffusion images. MQ: MRBWOW_2 Contrast: 15 mL Dotarem IV COMPARISON: None. RESULT: Acute Change: There is no evidence of restricted diffusion to suggest an acute infarct. Hemorrhage: No evidence of intracranial hemorrhage. Mass Lesion/ Mass Effect: No evidence of an intracranial mass or extra-axial fluid collection. No abnormal parenchymal or leptomeningeal enhancement is noted following contrast administration. No mass effect. Chronic Change: The white matter is within normal limits of signal intensity for age. Parenchyma: No significant volume loss for age. The brain parenchyma is otherwise within normal limits of signal intensity and morphology. Ventricles: Normal caliber and morphology. Skull Base: Hypothalamic and pituitary region are grossly normal. Craniocervical junction is normal. No significant marrow replacement process. Vasculature: The major intracranial arteries and dural venous sinuses are patent. Other: The visualized paranasal sinuses and mastoid air cells are clear. The orbits and extracranial soft tissues are unremarkable. IMPRESSION IMPRESSION: Normal MRI of the brain. Industrial Recruiter: LENCHO Transcribe Date/Time: Mar 11 2024 1:52P Dictated by : GAIL GRIJALVA MD This examination was interpreted and the report reviewed and electronically signed by: GAIL GRIJALVA MD on Mar 11 2024 1:54PM [facility] Radiology Study observation (narrative) [facility] MR Brain WO and W contrast I VOrdered By: [facility] Provider on 03-11-2024 [facility] MRI BRAIN WO/W IVCONon 03-11 MRI BRAIN WO/W IVCON * * *Final Report* * * DATE OF EXAM: Mar 11 2024 1:19PM [facility] 0295 - MRI BRAIN WO/W IVCON / PROCEDURE REASON: brain [place] * * * * Physician Interpretation * * * * EXAMINATION: MRI BRAIN WO/W IVCON CLINICAL HISTORY: Syncope TECHNIQUE: Routine brain MRI protocol without and with contrast including diffusion images. MQ: MRBWOW_2 Contrast: 15 mL Dotarem IV COMPARISON: None. RESULT: Acute Change: There is no evidence of restricted diffusion to suggest an acute infarct. Hemorrhage: No evidence of intracranial hemorrhage. Mass Lesion/ Mass Effect: No evidence of an intracranial mass or extra-axial fluid collection. No abnormal parenchymal or leptomeningeal enhancement is noted following contrast administration. No mass effect. Chronic Change: The white matter is within normal limits of signal intensity for age. Parenchyma: No significant volume loss for age. The brain parenchyma is otherwise within normal limits of signal intensity and morphology. Ventricles: Normal caliber and morphology. Skull Base: Hypothalamic and pituitary region are grossly normal. Craniocervical junction is normal. No significant marrow replacement process. Vasculature: The major intracranial arteries and dural venous sinuses are patent. Other: The visualized paranasal sinuses and mastoid air cells are clear. The orbits and extracranial soft tissues are unremarkable. IMPRESSION: Normal MRI of the brain. Industrial Recruiter: [facility] Transcribe Date/Time: Mar 11 2024 1:52P Dictated by : GAIL GRIJALVA MD This examination was interpreted and the report reviewed and electronically signed by: GAIL GRIJALVA MD on Mar 11 2024 1:54PM EST [id number] Normal [facility] CNOVon 02-25-2024 CNOV Office Visit (UCWSTR) EFE AGARWAL ([id number]) 1990 M Date Time Provider Department 02/25/24 3:00 PM SANYA TOM [facility] During your visit today, we recorded the following information about you: Sanya Tom APRN.CNP 02/25/2024 3:18 PM Signed Patient triaged at [facility]. Here today with right sided facial numbness and paralysis. I will refer to ER patient in no apparent distress at time of triage. Moving extremities equally. Allergies As of Date: 02/25/2024 (No Known Allergies) Date Reviewed: 10/19/2023 Reviewed by: Sanya Tom APRN.CNP - Fully Assessed Primary Visit Diagnosis:Facial numbness [R20.0] Prescriptions as of 02/25/2024 - diazePAM (VALIUM) 5 mg tablet - meclizine (ANTIVERT) 25 mg tab Meclizine Meclizine Hcl Active 25 MG Q8H September 02, 2019 2:11pm 09-02-2019 [facility] ([id number]) - furosemide (LASIX) 20 mg tablet Take 1 tablet by mouth once daily. - potassium chloride (K-TAB) 10 mEq tablet Take 1 tablet by mouth daily with breakfast. - verapamil ER (VERELAN) 120 mg 24 hr capsule Take 60 mg by mouth daily at bedtime. Patient is taking 1/2 tablet at bedtime. - SUMAtriptan (IMITREX) 50 mg tablet Take 50 mg by mouth as needed. - scopolamine (TRANSDERM-SCOP) patch 1.5 mg/72 hr (1 mg over 3 days) Apply 1 Patch as directed every 72 hours. Problem List As Of Date 02/25/2024 Noted Resolved Ulcerative colitis (HCC) [K51.90] Vertigo [R42] 07/14/2020 Encounter Status:Closed by SANYA TOM on 02/25/24 [facility] Emergency Department Summary on 02-25-2024 Emergency Department Summary [facility] Medical Records Department [address] [place] [address] Emergency Department Summary 02/25/24 MR#: [id number] Acct: [id number] Name: EFE AGARWAL Rep #: [id number] : 1990 34 From: Meme Clement DO PCP: Dr. 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 Patient started having symptoms yesterday and is worsening throughout the day today. States that his eye feels like it is draining and dry. States when he woke up today his right eyelid was matted shut. Denies any vision changes or blurry vision. Denies any fever or chills. Denies any acute hearing changes. States he has been under a lot of stress lately. Initially went to urgent care and was told he needs to come to the emergency room. Denies any other symptoms including numbness or weakness to the extremities. Denies feeling off balance. No other complaints or concerns at this time. [facility] Medical History Dyspnea Chest pain, unspecified Vertigo Menieres disease Hypothyroidism Home Medications ???Medication ???Instructions ???Recorded ???Last Taken ???Type rizatriptan 10 mg tablet 10 mg PO .COMPLEX PRN migraine 01/28/21 Unknown History headache diazepam 2 mg tablet 2 mg PO TID PRN PRN Vertigo #10 03/15/21 Unknown Rx TABLETS carboxymethylcellulo se sodium 0.5 1 drp RIGHT EYE Q1H PRN dry eye(s) 02/25/24 Unknown Rx % eye drops in a dropperette #50 ea (Lubricating Plus) prednisone 20 mg tablet 60 mg (3 x 20 mg) PO DAILY #12 02/25/24 Unknown Rx TABLETS Allergy/AdvReac Type Severity Reaction Status Date / Time No Known Allergies Allergy Verified 02/25/24 15:15 Family History Brother CVA (cerebral vascular accident) Epilepsy Heart disease Asthma History of ulcer disease Father Alcoholism Mother Arthritis Diabetes Uncle Myocardial infarction, Onset Age: 30 Mental disorder Surgical History History of tonsillectomy and adenoidectomy Social History Smoking Status: Never smoker Electronic Cigarette Use: not used second hand exposure: No alcohol intake: former substance use type: former substance user 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: 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 caffeine: No ROS ROS ED Constitutional Constitutional ED: Denies chills or fever(s) Eyes Eyes: Reports other Details: Dry eye on the right, drainage on the right eye ENT ENT ED: Denies ear pain, rhinorrhea or sore throat Cardiovascular Cardiovascular: Denies chest pain Respiratory/Chest Respiratory/Chest: Denies cough Gastrointestinal Gastrointestinal: Denies nausea or vomiting Musculoskeletal Musculoskeletal: Denies arthralgias or myalgias Neurologic Neurologic: Denies headache(s), paresthesias or weakness Psychiatric Psychiatric: Reports anxiety EXAM Physical Exam Const Vital Signs: 02/25/24 15:13 02/25/24 15:28 Temperature 97 F L Temperature Source Temporal Pulse Rate 100 Respiratory Rate 16 Respiratory Effort Normal Respiratory Pattern Normal Blood Pressure 121/83 H Blood Pressure Mean 95 Pulse Ox 99 Oxygen Delivery Method Room Air Positive well nourished and well developed General Appearance ED: well developed and NAD HEENT Reports TM's clear and moist mucous membranes Tympanic Membrane ED: Yes TM's clear Eyes PERRL and EOMs intact bilaterally Eyes Narrative: Very mild conjunctival injection to the right eye. Very mild swelling of the superior periorbital area on the right side. No associated erythema or induration of the skin. Neck supple Chest Wall inspection of chest normal Resp normal respiratory effort and clear to auscultation bilaterally Cardio regular rate and regular rhythm GI normal to inspection, nondistended, normoactive bowel sounds Extremity normal to inspection General Extremety ED: Negative for edema General Extremity: Negative for edema Neuro oriented x3 Neuro Narrative: Subtle right-sided facial droop with asymmetric forehead. There is deficit with rapid blinking on the right side however patient is able to intentionally completely close his eye. Sensorium / Orientation: alert Motor Exam: strength 5/5 throughout; Negative for general weakness Psych mental status grossly normal Skin no rashes or lesions noted and no wounds MDM (more content not included)... Normal [facility] Inital Evaluation (1) - PTon 02-06-2024 Inital Evaluation (1) - PT [facility] [address] [place] [address]. [address] [place] [address] / REHABILITATION SERVICES INITIAL EVALUATION MR#: [id number] Acct: [id number] Name: EFE AGARWAL Rep #: [id number] : 1990 34 From: Laurel GABRIEL Referring Dr.: Dr. Khalida Davis DO Status: REG R CR Insurance: [employer] SELF PAY INSURANCE Patient's Visit Information Visit Information Visit Information: EFE AGARWAL is a 34 year old M referred to Physical Therapy by Dr. Khalida Davis DO with a diagnosis of vertigo and cervical radiculopathy. Date of Evaluation: 02/06/24 Physical Therapist: NERY Machuca Visit Plan Frequency: 1-2x /Week Duration: 4 Weeks Plan: Pt to go home and try 3 X 10 chin tucks with head on towel 3-4X/ day and see how he feels. He is aware to stop the exercises if he gets increase dizziness or pain. See effectiveness of the supine chin tucks HEP: supine chin tucks on rolled towel Subjective Subjective: Pt is having really bad vertigo. The room spins. He has 2-3 episodes a week. The episodes lasts all day. Sometimes he does not know what is causing it like at work his fast paced moving. He gets a little lightheaded and spinning for about a half and hour with rolling in bed and standing up. He got x-rays in his spine and they said there is some things in his spine that could be causing his pain. He is going to see Dr Den Tate (chiropractor) and he is seeing him twice a week. He has seen him once already and it has not helped. He is getting REAGAN (1-2X/ week) and they last most of the day. He does not sleep well at night getting light headed or REAGAN. He has to have pillow propping hip up. He has had no Head injuries. Dr Davis said that he has a lot of tension on the L side. He is on a medication and has only tried it 3 times. He occ gets some tingling in his L side got cramped and achy. They just did an EEG and that was fine. This has been going on for 8- 10 years now and it is getting worse. He gets very stressed out at times but hard to related what is causing it. They ordered an MRI but it was denied and waiting on the appeal. Has to sleep on the R side or propped up or he will get dizzy. He wakes up in the middle of the night lightheaded). Pain neck pain: Pain Intensity (Out of 10): 5 Objective Objective: C-spine AROM: flex 100%, Ext 50% (increase lightheaded), Rot B 80%, SB B 80% (L>R dizziness/lightheade dness to the L) UE AROM: full AROM all planes UE MMT: R shoulder flex B 4+/5, R shoulder ABD 4+/5, R shoulder ER/IR 4/5 B B bicep reflex 2+/3 B R handed: R 75% and L 68# -R Hallpike. Questionable L Hallpike for dizziness that lasted less than a minute but no nystagmus..... treated with L EPLY. Re-tested Suraj fisher and same dizziness/lightheade dness as before the eply with no nystagmus Supine c-spine PROM to all end ranges except when put pt head back into extension and caused lightheaded/passing out feeling Seated vertical and horizontal smooth pursuit 45 seconds each and very slight lightheadedness. Seated head and eyes from one target to the next target horizontal and vertical X 45 each (no dizziness horizontal but slight lightheadedness with vertical) Walking with horizontal head turns did not cause any dizziness Walking with vertical head turns did cause some lightheadedness (pass out feeling) Sitting in a chair with neck extension AROM X 10 (started getting lightheaded at 6) Supine chin tucks onto a rolled towel under head X 10 (first one slight lightheadedness and the more he did the more lightheaded he got) repeated X 10 more (lightheaded while doing it but then stops) attempted X 10 more (no lightheadedness but some neck pain).... X 10 (no lightheadedness now)...did have to get up very slow and some lightheadedness getting up. Then did X 10 seated neck ext and got a little lightheaded. Balance/Special Test Scores Dizziness Score: 74 Goals Goal 1:: I HEP Goal Time Frame: 4-6 Weeks Goal 2:: Abolish lightheadedness with neck extension Goal Time Frame: 4-6 Weeks Goal 3:: be able to walk with vertical head turns without getting lightheaded Goal Time Frame: 4-6 Weeks Rehabilitation Potential Physical Therapy Diagnosis: At this point in time the only thing that brings on the patients lightheadedness is looking up into extension, chin tucks, and lying back down on his back. Nothing else vestibular bailey brought on his dizziness. Will try some light extension based exercises starting in supine to see if helps his lightheadedness at all and if not, probable DC back to physician Rehabilitation Potential: Fair Anticipated Interventions Patient/Client Instruction: Educate patient on: Condition and Plan of Care For the Purpose of:: To decrease pain, To increase ROM, To improve nutrient delivery to tissue, To improve muscle performance and (more content not included)... Normal [facility] CNOVon 10-19-2023 CNOV Office Visit (UCWSTR) EFE AGARWAL ([id number]) 1990 M Date Time Provider Department 10/19/23 11:00 AM SANYA TOM [facility] During your visit today, we recorded the following information about you: Temperature Pulse Respiration Blood pressure 97.4 degrees 92/minute 21/minute 138/68 Weight 74.1 kg Sanya Tom APRN.CNP 10/19/2023 12:24 PM Addendum Subjective HPI HPI Efe Agarwal is a 33 year old male who presents today for CC of right hand injury, hurt while playing VR game. This started 1 day ago. Has tried otc medication for relief. Symptoms are worsened by nothing. .Patient presents with: Trauma: Right hand pinky finger injury x 1 day PAST MEDICAL HISTORY Diagnosis Date Ulcerative colitis (HCC) controlled Vertigo PAST SURGICAL HISTORY Procedure Laterality Date NONE TONSILLECTOMY HX ALLERGIES Patient has no known allergies. MEDICATIONS diazePAM (VALIUM) 5 mg tablet meclizine (ANTIVERT) 25 mg tab Meclizine Meclizine Hcl Active 25 MG Q8H September 02, 2019 2:11pm 09-02-2019 [facility] ([id number]) furosemide (LASIX) 20 mg tablet Take 1 tablet by mouth once daily. (Patient not taking: Reported on 05/31/2021 ) potassium chloride (K-TAB) 10 mEq tablet Take 1 tablet by mouth daily with breakfast. (Patient not taking: Reported on 05/31/2021 ) verapamil ER (VERELAN) 120 mg 24 hr capsule Take 60 mg by mouth daily at bedtime. Patient is taking 1/2 tablet at bedtime. SUMAtriptan (IMITREX) 50 mg tablet Take 50 mg by mouth as needed. (Patient not taking: Reported on 05/31/2021 ) scopolamine (TRANSDERM-SCOP) patch 1.5 mg/72 hr (1 mg over 3 days) Apply 1 Patch as directed every 72 hours. FAMILY HISTORY Problem Relation Age of Onset Heart Attack Brother Heart Attack Brother Heart stents None Mother Diabetes Mother None Father Diabetes Maternal Grandfather Prostate Cancer Maternal Grandfather other (anurysm) Maternal Grandfather Diabetes Maternal Grandmother Social History Tobacco Use Smoking status: Never Passive exposure: Yes Smokeless tobacco: Never Tobacco comments: mom smokes mostly outside Vaping Use Vaping Use: Never used Substance Use Topics Alcohol use: No Drug use: No ROS Objective Blood pressure 138/68, pulse 92, temperature 36.3 ?C (97.4 ?F), resp. rate 21, weight 74.1 kg (163 lb 5.8 oz), SpO2 99%. Physical Exam Constitutional: General: He is not in acute distress. Appearance: He is not toxic-appearing or diaphoretic. HENT: Head: Normocephalic and atraumatic. Pulmonary: Effort: Pulmonary effort is normal. No accessory muscle usage or respiratory distress. Musculoskeletal: Hands: Neurological: Mental Status: He is alert and oriented to person, place, and time. ASSESSMENT/PLAN: 1. Hand injuries, right, initial encounter - ICD9: 959.4, ICD10: S69.91XA Splint applied Pain relief discussed F/u with ortho if s/s persist. - XR HAND GENERAL 3V PA/LAT/OBL RIGHT IMPRESSION: No acute osseous abnormality Dictated by : MD Sanya ARAUJO APRN.CNP Allergies As of Date: 10/19/2023 (No Known Allergies) Date Reviewed: 10/19/2023 Reviewed by: Sanya Tom APRN.AUTOMATION QA TESTER - Fully Assessed Reason for Visit: Trauma [112] Cmt: Right hand pinky finger injury x 1 day Primary Visit Diagnosis:Hand injuries, right, initial encounter [S69.91XA] Order(s):XR HAND GENERAL 3V PA/LAT/OBL RIGHT [[id number]] Order #: [id number] #:[id number] Prescriptions as of 10/19/2023 - diazePAM (VALIUM) 5 mg tablet - meclizine (ANTIVERT) 25 mg tab Meclizine Meclizine Hcl Active 25 MG Q8H September 02, 2019 2:11pm 09-02-2019 [facility] ([id number]) - furosemide (LASIX) 20 mg tablet Take 1 tablet by mouth once daily. - potassium chloride (K-TAB) 10 mEq tablet Take 1 tablet by mouth daily with breakfast. - verapamil ER (VERELAN) 120 mg 24 hr capsule Take 60 mg by mouth daily at bedtime. Patient is taking 1/2 tablet at bedtime. - SUMAtriptan (IMITREX) 50 mg tablet Take 50 mg by mouth as needed. - scopolamine (TRANSDERM-SCOP) patch 1.5 mg/72 hr (1 mg over 3 days) Apply 1 Patch as directed every 72 hours. Problem List As Of Date 10/19/2023 Noted Resolved Ulcerative colitis (HCC) [K51.90] Vertigo [R42] 07/14/2020 Letter Text Encounter Status:Closed by SANYA TOM on 10/19/23 Normal [facility] XR HAND 3V PA/LAT/OBL RTon 0 10-19-2023 XR HAND 3V PA/LAT/OBL RT * * *Final Report* * * DATE OF EXAM: Oct 19 2023 11:11AM WOX [id number] - XR HAND 3V PA/LAT/OBL RT / PROCEDURE REASON: Hand injuries, right, initial encounter * * * * Physician Interpretation * * * * EXAMINATION: XR HAND 3V PA/LAT/OBL RT CLINICAL HISTORY: Right hand pain Technique: XR HAND 3V PA/LAT/OBL RT -- RIGHT with 3 views on 4 images Comparison: None RESULT: No acute fracture or dislocation. Joint spaces are maintained. IMPRESSION: No acute osseous abnormality Industrial Recruiter: PSCB Transcribe Date/Time: Oct 19 2023 11:26A Dictated by : PRISCILA STEVENSON MD This examination was interpreted and the report reviewed and electronically signed by: PRISCILA STEVENSON MD on Oct 19 2023 11:29AM EST [id number] Normal [facility] XR Hand - right PA and Later al and Obliqueon 10-19-2023 IMPRESSION: No acute osseous abnormality Industrial Recruiter: SIDNEYB Transcribe Date/Time: Oct 19 2023 11:26A Dictated by : PRISCILA STEVENSON MD This examination was interpreted and the report reviewed and electronically signed by: PRISCILA STEVENSON MD on Oct 19 2023 11:29AM [facility] DIVISION OF RADIOLOGY * * *Final Report* * * DATE OF EXAM: Oct 19 2023 11:11AM WOX [id number] - XR HAND 3V PA/LAT/OBL RT / PROCEDURE REASON: Hand injuries, right, initial encounter * * * * Physician Interpretation * * * * EXAMINATION: XR HAND 3V PA/LAT/OBL RT CLINICAL HISTORY: Right hand pain Technique: XR HAND 3V PA/LAT/OBL RT -- RIGHT with 3 views on 4 images Comparison: None RESULT: No acute fracture or dislocation. Joint spaces are maintained. DIVISION OF RADIOLOGY Provider, [facility] [place] - 10/19/2023 * * *Final Report* * * DATE OF EXAM: Oct 19 2023 11:11AM WOX 5346 - XR HAND 3V PA/LAT/OBL RT / PROCEDURE REASON: Hand injuries, right, initial encounter * * * * Physician Interpretation * * * * EXAMINATION: XR HAND 3V PA/LAT/OBL RT CLINICAL HISTORY: Right hand pain Technique: XR HAND 3V PA/LAT/OBL RT -- RIGHT with 3 views on 4 images Comparison: None RESULT: No acute fracture or dislocation. Joint spaces are maintained. IMPRESSION IMPRESSION: No acute osseous abnormality Industrial Recruiter: LENCHO Transcribe Date/Time: Oct 19 2023 11:26A Dictated by : PRISCILA STEVENSON MD This examination was interpreted and the report reviewed and electronically signed by: PRISCILA STEVENSON MD on Oct 19 2023 11:29AM [facility] Radiology Study observation (narrative) Cathy ayala [facility] XR Hand - right PA and Later al and ObliqueOrdered By: Ccf Provider on 10-19-2023 [facility] ECG COMPLETEon 09-06-2019 ECG COMPLETE NAME : EFE AGARWAL PID : [id number] : 1990 Gender : Male Race : ORD : [id number] Procedure Date : Sep 06 2019 12:40:01 Edit Date : Sep 09 2019 16:43:07 Diagnosis:NORMAL SINUS RHYTHM INCOMPLETE RIGHT BUNDLE BRANCH BLOCK NO PREVIOUS ECGS AVAILABLE Confirmed by MD ANNA, CASTILLO ([id number]) on 09/09/2019 4:43:06 PM Ventricular Rate : 85 BPM Atrial Rate : 85 BPM P-R Interval : 144 ms QRS Duration : 100 ms Q-T Interval : 384 ms QTC Calculation(Bazett) : 456 ms P [place] : 62 degrees R [place] : 79 degrees T [place] : 52 degrees Test Reason : Dizziness Location : 150 : [facility] Overread By : MD CASTILLO VINAYAK Edited By : MD CASTILLO VINAYAK Referred By : , Acquired by : ATA SEGUNDO [facility] Office Visit: : CRYSTAL king 05-04-2017 Alcoholism counseling (procedure) no Invalid Interpretation Code [facility] Work Phone: Documentation of current medications (procedure) Done Invalid Interpretation Code [facility] Work Phone: Fall risk assessment No Invalid Interpretation Code [facility] Work Phone: Tobacco smoking status NHIS Never Invalid Interpretation Code [facility] Work Phone: Tobacco use [facility] Former smoker Invalid Interpretation Code [facility] Work Phone: Office Visit: [facility] med: brendan martin 04-07-2017 Alcoholism counseling (procedure) no Invalid Interpretation Code [facility] Work Phone: Documentation of current medications (procedure) Done Invalid Interpretation Code [facility] Work Phone: Fall risk assessment No Invalid Interpretation Code [facility] Work Phone: Protein mass conc Done Invalid Interpretation Code [facility] Work Phone: Protein mass conc no Invalid Interpretation Code [facility] Work Phone: Tobacco smoking status NHIS Never Invalid Interpretation Code [facility] Work Phone: Tobacco smoking status NHIS Former smoker Invalid Interpretation Code [facility] Work Phone: Tobacco use CPHS Former smoker Invalid Interpretation Code [facility] Work Phone: Rx Refill: eRx Request for H YDROCHLOROTHIAZIDE 12.5 MG TBon 02-07-2016 [id number]`HYDROCHLO ROTHIAZIDE 12.5 MG TB```30 Tablet`30`TAKE 1 TABLET EVERY DAY``4`0`09/08/2015` No date sent`[facility]*`[id number]` [id number]``HYDROCH LOROTHIAZIDE 12.5 MG TB Quantity: 30 Tablet Instructions: TAKE 1 TABLET EVERY DAY Better [facility] Work Phone: Office Visit: Initial Visito n 02-09-2015 Protein mass conc yes Invalid Interpretation Code [facility] Work Phone: Smoking cessation education (procedure) yes Invalid Interpretation Code [facility] Work Phone: External Other: Preferred Me thod of Contacton 01-05-2014 methcontact phone Invalid Interpretation Code [facility] Work Phone: Vital Signs Date Time Vital Sign Value Performing Clinician Facility 06-25-2024 12:06-0500 Body mass index (BMI) [Ratio] 29.35 kg/m2 Helen Ocampo CLERICAL ADJUDICATOR.AUTOMATION QA TESTER Work Phone: [facility] 06-25-2024 12:06-0500 Body temperature 96.8 [degF] Helen Ocampo CLERICAL ADJUDICATOR.AUTOMATION QA TESTER Work Phone: [facility] 06-25-2024 12:06-0500 Body weight 80 kg Helen Ocampo CLERICAL ADJUDICATOR.AUTOMATION QA TESTER Work Phone: [facility] 06-25-2024 12:06-0500 Diastolic blood pressure 86 mm[Hg] Helen Ocampo CLERICAL ADJUDICATOR.AUTOMATION QA TESTER Work Phone: [facility] 06-25-2024 12:06-0500 Heart rate 92 /min Helen Ocampo CLERICAL ADJUDICATOR.AUTOMATION QA TESTER Work Phone: [facility] 06-25-2024 12:06-0500 Respiratory rate 18 /min Helen Ocampo CLERICAL ADJUDICATOR.AUTOMATION QA TESTER Work Phone: [facility] 06-25-2024 12:06-0500 SaO2% (BldA) [Mass fraction] 99 % Helen Ocampo CLERICAL ADJUDICATOR.AUTOMATION QA TESTER Work Phone: [facility] 06-25-2024 12:06-0500 Systolic blood pressure 124 mm[Hg] Helen Ocampo CLERICAL ADJUDICATOR.AUTOMATION QA TESTER Work Phone: [facility] 10-19-2023 10:53-0400 Body mass index (BMI) [Ratio] 27.18 kg/m2 Sanya Tom CLERICAL ADJUDICATOR.AUTOMATION QA TESTER Work Phone: [facility] 10-19-2023 10:53-0400 Body temperature 97.39 [degF] Sanya Tom CLERICAL ADJUDICATOR.AUTOMATION QA TESTER Work Phone: [facility] 10-19-2023 10:53-0400 Body weight 74.1 kg Sanya Tom CLERICAL ADJUDICATOR.AUTOMATION QA TESTER Work Phone: [facility] 10-19-2023 10:53-0400 Diastolic blood pressure 68 mm[Hg] Sanya Tom CLERICAL ADJUDICATOR.AUTOMATION QA TESTER Work Phone: [facility] 10-19-2023 10:53-0400 Heart rate 92 /min Sanya Tom CLERICAL ADJUDICATOR.AUTOMATION QA TESTER Work Phone: [facility] 10-19-2023 10:53-0400 Respiratory rate 21 /min Sanya Tom CLERICAL ADJUDICATOR.AUTOMATION QA TESTER Work Phone: [facility] 10-19-2023 10:53-0400 SaO2% (BldA) [Mass fraction] 99 % Sanya Tom CLERICAL ADJUDICATOR.AUTOMATION QA TESTER Work Phone: [facility] 10-19-2023 10:53-0400 Systolic blood pressure 138 mm[Hg] Sanya Tom CLERICAL ADJUDICATOR.AUTOMATION QA TESTER Work Phone: [facility] 05-04-2017 13:18-0500 BMI (Body Mass Index) 20.67 kg/m2 Boubacar GARDUNO [facility] Work Phone: 05-04-2017 13:18-0500 Body Temperature 97.9 [degF] Boubacar GARDUNO [facility] Work Phone: 05-04-2017 13:18-0500 BP Diastolic 74 mm[Hg] Boubacar GARDUNO [facility] Work Phone: 05-04-2017 13:18-0500 BP Systolic 106 mm[Hg] Boubacar Aimee GARDUNO [facility] Work Phone: 05-04-2017 13:18-0500 Height 170.18 cm Boubacar Yu LAUREEN [facility] Work Phone: 05-04-2017 13:18-0500 Pulse (Heart Rate) 95 /min Boubacar Tristanvilla GARDUNO [facility] Work Phone: 05-04-2017 13:18-0500 Respiratory Rate 14 /min Boubacar Yu [facility] Work Phone: 05-04-2017 13:18-0500 Weight 59.88 kg Boubacar Tristanvilla GARDUNO [facility] Work Phone: 04-07-2017 10:20-0400 BMI (Body Mass Index) 19.73 kg/m2 Elyssa Georgesar COMPUTER OPERATIONS MANAGER [facility] Work Phone: 04-07-2017 10:20-0400 Body Temperature 97.2 [degF] Elyssa Georgesar COMPUTER OPERATIONS MANAGER [facility] Work Phone: 04-07-2017 10:20-0400 BP Diastolic 72 mm[Hg] Elyssa Georgesar COMPUTER OPERATIONS MANAGER [facility] Work Phone: 04-07-2017 10:20-0400 BP Systolic 114 mm[Hg] Elyssa Georgesar COMPUTER OPERATIONS MANAGER [facility] Work Phone: 04-07-2017 10:20-0400 Height 170.18 cm Elyssa Cogar COMPUTER OPERATIONS MANAGER [facility] Work Phone: 04-07-2017 10:20-0400 Pulse (Heart Rate) 90 /min Elyssa Georgesar COMPUTER OPERATIONS MANAGER [facility] Work Phone: 04-07-2017 10:20-0400 Respiratory Rate 14 /min Elyssa Cogar COMPUTER OPERATIONS MANAGER [facility] Work Phone: 04-07-2017 10:20-0400 Weight 57.15 kg Elyssa Georgesar COMPUTER OPERATIONS MANAGER [facility] Work Phone: 01-25-2016 14:23-0400 BSA (Body Surface Area) 1.6 m2 Elyssa Camargo CONNIE [facility] Work Phone: Encounters Encounter Date Encounter Type Care Provider Facility Start: 06-25-2024 End: 06-25-2024 Emergency department patient visit Khalida Davis Facility:[facility] Start: 06-25-2024 End: 06-25-[address] [facility] Facility[facility] Start: 06-25-2024 End: 06-25-2024 Patient encounter procedure Helen Ocampo CLERICAL ADJUDICATOR.AUTOMATION QA TESTER Work Phone: [facility] Comment on above: Vomiting without dalia sea, unspecified vomiting type (Primary Dx) Start: 06-18-2024 End: 06-18-2024 Patient encounter procedure [facility] Comment on above: No-show for appointm ent (Primary Dx) Start: 04-05-2024 ambulatory Khalida Davis [facility] Start: 04-05-2024 End: 04-05-2024 [facility] Start: 03-27-2024 End: 03-27-2024 [facility] Start: 03-11-2024 End: 03-11-2024 ambulatory DINESH MILES Facility:[facility] Start: 03-11-2024 End: 03-11-2024 Subsequent hospital visit by physician Mri [facility] (I-Stat/1.5t) Work Phone: Radiology Start: 02-25-2024 End: 02-25-2024 Emergency department patient visit Meme Clement Facility:[facility] Start: 02-25-2024 End: 02-25-2024 Patient encounter procedure Sanya Tom CLERICAL ADJUDICATOR.AUTOMATION QA TESTER Work Phone: [facility] Comment on above: Facial numbness (Suzanne yuly Dx) Start: 02-25-2024 End: 02-25-2024 ambulatory KHALIDA A ERNIE Facility:[facility] Start: 02-08-2024 ambulatory Dinesh Miles Facility:[facility] Start: 10-19-2023 End: 10-19-2023 Subsequent hospital visit by physician Xr [facility] Work Phone: Radiology Comment on above: Hand injuries, right , initial encounter [S69.91XA] Start: 10-19-2023 End: 10-19-2023 ambulatory KHALIDA DAVIS Facility:[facility] Start: 10-19-2023 End: 10-19-2023 Patient encounter procedure Sanya Tom APRN.AUTOMATION QA TESTER Work Phone: [facility] Comment on above: Hand injuries, right , initial encounter (Primary Dx) Start: 04-10-2023 Transcribe Orders Katie Viramontes MA [facility] [place] Comment on above: Meniere's disease of left ear (Primary Dx) Start: 02-09-2022 End: 02-09-2022 ambulatory [facility] Work Phone: Start: 02-09-2022 End: 02-09-2022 Patient encounter procedure [facility]-Radiology, [place] Procedures Date Procedure Procedure Detail Performing Clinician Start: 03-11-2024 Mri brain brain stem w/o w/contrast material [facility] Provider Start: 10-19-2023 Radex hand minimum 3 views Sanya Tom APRN.AUTOMATION QA TESTER Work Phone: Start: 02-09-2022 Plain chest X-ray Start: 04-07-2017 End: 04-07-2017 Simple repair scalp/neck/ax/genit/trunk 2.5cm/< Vidal GARDUNO Work Phone: Start: 12-02-2013 End: 12-09-2013 ENT referral Mo Neri MD Plan of Treatment Date Care Activity Detail Author Start: 2051 Hepatitis B Vaccine (1 of 3 - Risk 3-dose series) Hepatitis B Vaccine (1 of 3 - Risk 3-dose series) [facility] Start: 03-11-2024 End: 03-11-2024 Patient encounter procedure 03/11/2024 1:00 PM EDT Appointment Radiology [address] [place] [address] Altered Mental Status, Unspecified Radiology Comment on above: Altered Mental Statu s, Unspecified Start: 02-18-2024 Covid-19 Vaccine ( season) Covid-19 Vaccine ( season) [facility] Start: 02-18-2024 Covid-19 Vaccine ( season) Covid-19 Vaccine ( season) [facility] Start: 02-18-2024 Influenza vaccination [facility] Start: 06-19-2023 Behavioral Health Screening Behavioral Health Screening [facility] Start: 02-17-2023 Covid-19 Vaccine ( season) Covid-19 Vaccine ( season) [facility] Start: 05-04-2017 End: 05-04-2017 Appointment Appointment [facility] Work Phone: Start: 04-07-2017 End: 04-07-2017 Appointment Appointment [facility] Work Phone: Start: 12-02-2013 End: 12-09-2013 ENT referral ENT referral Thanh Maxwell, [address] [place], [address] [facility] Work Phone: Start: 2010 Hepatitis A Vaccine (1 of 2 - Risk 2-dose series) Hepatitis A Vaccine (1 of 2 - Risk 2-dose series) [facility] Start: 2010 Hepatitis B Vaccine (1 of 3 - 19+ 3-dose series) Hepatitis B Vaccine (1 of 3 - 19+ 3-dose series) [facility] Start: 2010 Urine microalbumin profile DTaP,Tdap,Td Vaccine (1 - Tdap) [facility] Start: 2009 Anxiety Screening Anxiety Screening [facility] Start: 2009 Depression Screening Depression Scre ening [facility] Start: 2009 Hepatitis C screening Hepatitis C Sc reening [facility] Start: 2009 HIV screening HIV Screening [facility] Start: 2009 MMR Vaccine (1 of 2 - Risk 2-dose series) MMR Vaccine (1 of 2 - Risk 2-dose series) [facility] Start: 2001 Meningococcal B Vacc ine: Consider Based On Risk (1 of 4 - Increased Risk) Meningococcal B Vaccine: Consider Based On Risk (1 of 4 - Increased Risk) [facility] Start: 1997 Pneumococcal vaccination Pneum ococcal Vaccine (1 of 2 - PCV) [facility] Patient Education [facility] Work Phone: Immunizations Immunization Date Immunization Notes Care Provider Sriram fernández 04-28-2009 novel [id number], all formulations Sanya Tom APRN.[facility] Work Phone: [facility] Work Phone: Payers Date Payer Category Payer Self-pay [id number] 2021 Private Health Insurance [id number] 2021 Private Health Insurance [id number] 2012 Unknown [employer] [id number] Unknown [employer] [id number] Unknown [id number] [id number] [id number] Unknown [id number] Unknown [id number] [id number] Unknown [id number] [id number] Unknown [id number] [id number] Unknown [id number] [id number] Social History Date Type Detail Facility Start: 03-15-2021 [facility] if ever smoked [facility] Work Phone: Start: 09-02-2019 With Family [facility] Work Phone: Start: 1990 Sex Assigned At Male [facility] Work Phone: Start: 1990 Sex Assigned At Not on file [facility] Start: 03-24-2021 End: 06-18-2024 Gender identity Not on file [facility] Start: 10-19-2023 Tobacco smoking stat NHIS Never smoked tobacco [facility] History of tobacco use Passive smoker [facility] Start: 10-19-2023 Tobacco use and exposure Smoke less tobacco non-user [facility] Start: 10-19-2023 End: 06-25-2024 Alcohol intake Current non-drinker of alcohol (finding) [facility] Start: 03-24-2021 End: 06-18-2024 History of Social function [facility] Do you belong to any clubs or organizations such as pentecostal groups, unions, fraternal or athletic groups, or school groups? No [facility] Are you now , , , , never or living with a partner? Never [facility] How often to you hav e a drink containing alcohol? Never [facility] How many standard dr inks containing alcohol do you have on a typical day? Patient declined [facility] Do you feel stress - tense, restless, nervous, or anxious, or unable to sleep at night because your mind is troubled all the time - these days [OSQ] Only a little [facility] (I/We) worried wheth er (my/our) food would run out before (I/we) got money to buy more. Never true [facility] Start: 03-24-2021 Education 12 [facility] Start: 10-19-2023 Tobacco Comment mom smokes mos tly outside [facility] Clinical Notes 10-19-2023 to 06-25-2024 Estelita Sauceda APRN.AUTOMATION QA TESTER - 06/25/2024 12:19 PM Darren Anaya R Ac - 06/18/2024 9:52 AM Khalida Russo, RT(R) - 03/11/2024 1:00 PM Sanya Liz APRN.AUTOMATION QA TESTER - 02/25/2024 3:17 PM EDT Note Date & Type Note Facility 06-25-2024 Note HNO ID: [id number] Author: ESTELITA SAUCEDA APRN.AUTOMATION QA TESTER Service: ? Author Type: Nurse Practitioner Type: Progress Notes Filed: 06/25/2024 12:44 Note Text: Came in complaining of stomach acid over the last year that feels like it is going up into his throat. Patient says it is getting significantly worse over the last month. Patient says last night he started vomiting a dark color. He said it could look similar to coffee grounds. At this time patient is being referred to the emergency room for full evaluation. Patient agreeable will take himself now. [facility] 06-25-2024 History of Present illness Narrative Came in complaining of stomach acid over the last year that feels like it is going up into his throat. Patient says it is getting significantly worse over the last month. Patient says last night he started vomiting a dark color. He said it could look similar to coffee grounds. At this time patient is being referred to the emergency room for full evaluation. Patient agreeable will take himself now. documented in this encounter [facility] 06-18-2024 Note HNO ID: [id number] Author: DARREN HERNANDEZ R Ac Service: ? Author Type: Diplomat of Acupuncture Type: Progress Notes Filed: 06/18/2024 09:52 Note Text: No show [facility] 06-18-2024 History of Present illness Narrative No show documented in this encounter [facility] 03-11-2024 History of Present illness Narrative Radiology Service Progress Note DATE OF SERVICE: March 11, 2024 TIME: 12:56 PM PATIENT IDENTITY VERIFICATION COMPLETED USING TWO (2) STANDARD IDENTIFIERS: Name and Date of confirmed by patient verbally. FALL SCREENING: Has the patient had 2 falls in the last year or 1 fall with injury or currently using an Ambulatory Assistive Device (Walker, Cane, Wheelchair, Crutches, etc.)? No PATIENT GENDER DATA: Male PATIENT RELEVANT IMPLANT DATA REVIEWED: Yes PATIENT PRESENTS WITH AN IMPLANTABLE OR ATTACHED SAFE AND VAULT SERVICE MECHANIC: No ALLERGIES: Reviewed and unchanged CONTRAST ALLERGY: NO. EXAM: MRI - CONTRAST TYPE: GROUP II PERIPHERAL IV DATA: Ambulatory: A peripheral IV was started in the Left antecubital site with a Angio cath: 22 gauge. RADIOLOGY DEPARTMENT: MR; Exam(s) Completed: Head: Routine Brain SIGNATURE: RT Glenna(Lennox) PATIENT NAME: Efe Agarwal DATE: March 11, 2024 TIME: 12:56 PM documented in this encounter [facility] 03-11-2024 Note HNO ID: [id number] Author: KHALIDA GUY RT(R) Service: ? Author Type: Technologist Type: Progress Notes Filed: 03/11/2024 12:56 Note Text: Radiology Service Progress Note DATE OF SERVICE: March 11, 2024 TIME: 12:56 PM PATIENT IDENTITY VERIFICATION COMPLETED USING TWO (2) STANDARD IDENTIFIERS: Name and Date of confirmed by patient verbally. FALL SCREENING: Has the patient had 2 falls in the last year or 1 fall with injury or currently using an Ambulatory Assistive Device (Walker, Cane, Wheelchair, Crutches, etc.)? No PATIENT GENDER DATA: Male PATIENT RELEVANT IMPLANT DATA REVIEWED: Yes PATIENT PRESENTS WITH AN IMPLANTABLE OR ATTACHED SAFE AND VAULT SERVICE MECHANIC: No ALLERGIES: Reviewed and unchanged CONTRAST ALLERGY: NO. EXAM: MRI - CONTRAST TYPE: GROUP II PERIPHERAL IV DATA: Ambulatory: A peripheral IV was started in the Left antecubital site with a Angio cath: 22 gauge. RADIOLOGY DEPARTMENT: MR; Exam(s) Completed: Head: Routine Brain SIGNATURE: RT Glenna(Lennox) PATIENT NAME: Efe Agarwal DATE: March 11, 2024 TIME: 12:56 PM [facility] 02-25-2024 Note HNO ID: [id number] Author: SANYA TOM APRN.AUTOMATION QA TESTER Service: ? Author Type: Nurse Practitioner Type: Progress Notes Filed: 02/25/2024 15:18 Note Text: Patient triaged at [facility]. Here today with right sided facial numbness and paralysis. I will refer to ER patient in no apparent distress at time of triage. Moving extremities equally. [facility] 02-25-2024 History of Present illness Narrative Patient triaged at [facility]. Here today with right sided facial numbness and paralysis. I will refer to ER patient in no apparent distress at time of triage. Moving extremities equally. documented in this encounter [facility] 10-19-2023 Note HNO ID: [id number] Author: SANYA TOM APRN.CARLOS Service: ? Author Type: Nurse Practitioner Type: Progress Notes Filed: 10/19/2023 12:24 Note Text: Subjective HPI HPI Efe Agarwal is a 33 year old male who presents today for CC of right hand injury, hurt while playing VR game. This started 1 day ago. Has tried otc medication for relief. Symptoms are worsened by nothing. .Patient presents with: Trauma: Right hand pinky finger injury x 1 day PAST MEDICAL HISTORY Diagnosis Date Ulcerative colitis (HCC) controlled Vertigo PAST SURGICAL HISTORY Procedure Laterality Date NONE TONSILLECTOMY HX ALLERGIES Patient has no known allergies. MEDICATIONS diazePAM (VALIUM) 5 mg tablet meclizine (ANTIVERT) 25 mg tab Meclizine Meclizine Hcl Active 25 MG Q8H September 02, 2019 2:11pm 09-02-2019 [facility] ([id number]) furosemide (LASIX) 20 mg tablet Take 1 tablet by mouth once daily. (Patient not taking: Reported on 05/31/2021 ) potassium chloride (K-TAB) 10 mEq tablet Take 1 tablet by mouth daily with breakfast. (Patient not taking: Reported on 05/31/2021 ) verapamil ER (VERELAN) 120 mg 24 hr capsule Take 60 mg by mouth daily at bedtime. Patient is taking 1/2 tablet at bedtime. SUMAtriptan (IMITREX) 50 mg tablet Take 50 mg by mouth as needed. (Patient not taking: Reported on 05/31/2021 ) scopolamine (TRANSDERM-SCOP) patch 1.5 mg/72 hr (1 mg over 3 days) Apply 1 Patch as directed every 72 hours. FAMILY HISTORY Problem Relation Age of Onset Heart Attack Brother Heart Attack Brother Heart stents None Mother Diabetes Mother None Father Diabetes Maternal Grandfather Prostate Cancer Maternal Grandfather other (anurysm) Maternal Grandfather Diabetes Maternal Grandmother Social History Tobacco Use Smoking status: Never Passive exposure: Yes Smokeless tobacco: Never Tobacco comments: mom smokes mostly outside Vaping Use Vaping Use: Never used Substance Use Topics Alcohol use: No Drug use: No ROS Objective Blood pressure 138/68, pulse 92, temperature 36.3 ?C (97.4 ?F), resp. rate 21, weight 74.1 kg (163 lb 5.8 oz), SpO2 99%. Physical Exam Constitutional: General: He is not in acute distress. Appearance: He is not toxic-appearing or diaphoretic. HENT: Head: Normocephalic and atraumatic. Pulmonary: Effort: Pulmonary effort is normal. No accessory muscle usage or respiratory distress. Musculoskeletal: Hands: Neurological: Mental Status: He is alert and oriented to person, place, and time. ASSESSMENT/PLAN: 1. Hand injuries, right, initial encounter - ICD9: 959.4, ICD10: S69.91XA Splint applied Pain relief discussed F/u with ortho if s/s persist. - XR HAND GENERAL 3V PA/LAT/OBL RIGHT IMPRESSION: No acute osseous abnormality Dictated by : MD Sanya ARAUJO APRN.[facility] 10-19-2023 History of Present illness Narrative Images from the original note were not included. Subjective HPI HPI Efe Agarwal is a 33 year old male who presents today for CC of right hand injury, hurt while playing VR game. This started 1 day ago. Has tried otc medication for relief. Symptoms are worsened by nothing. .Patient presents with: Trauma: Right hand pinky finger injury x 1 day PAST MEDICAL HISTORY Diagnosis Date Ulcerative colitis (HCC) controlled Vertigo PAST SURGICAL HISTORY Procedure Laterality Date NONE TONSILLECTOMY HX ALLERGIES Patient has no known allergies. MEDICATIONS diazePAM (VALIUM) 5 mg tablet meclizine (ANTIVERT) 25 mg tab Meclizine Meclizine Hcl Active 25 MG Q8H September 02, 2019 2:11pm 09-02-2019 [facility] ([id number]) furosemide (LASIX) 20 mg tablet Take 1 tablet by mouth once daily. (Patient not taking: Reported on 05/31/2021 ) potassium chloride (K-TAB) 10 mEq tablet Take 1 tablet by mouth daily with breakfast. (Patient not taking: Reported on 05/31/2021 ) verapamil ER (VERELAN) 120 mg 24 hr capsule Take 60 mg by mouth daily at bedtime. Patient is taking 1/2 tablet at bedtime. SUMAtriptan (IMITREX) 50 mg tablet Take 50 mg by mouth as needed. (Patient not taking: Reported on 05/31/2021 ) scopolamine (TRANSDERM-SCOP) patch 1.5 mg/72 hr (1 mg over 3 days) Apply 1 Patch as directed every 72 hours. FAMILY HISTORY Problem Relation Age of Onset Heart Attack Brother Heart Attack Brother Heart stents None Mother Diabetes Mother None Father Diabetes Maternal Grandfather Prostate Cancer Maternal Grandfather other (anurysm) Maternal Grandfather Diabetes Maternal Grandmother Social History Tobacco Use Smoking status: Never Passive exposure: Yes Smokeless tobacco: Never Tobacco comments: mom smokes mostly outside Vaping Use Vaping Use: Never used Substance Use Topics Alcohol use: No Drug use: No ROS Objective Blood pressure 138/68, pulse 92, temperature 36.3 C (97.4 F), resp. rate 21, weight 74.1 kg (163 lb 5.8 oz), SpO2 99%. Physical Exam Constitutional: General: He is not in acute distress. Appearance: He is not toxic-appearing or diaphoretic. HENT: Head: Normocephalic and atraumatic. Pulmonary: Effort: Pulmonary effort is normal. No accessory muscle usage or respiratory distress. Musculoskeletal: Hands: Neurological: Mental Status: He is alert and oriented to person, place, and time. ASSESSMENT/PLAN: 1. Hand injuries, right, initial encounter - ICD9: 959.4, ICD10: S69.91XA Splint applied Pain relief discussed F/u with ortho if s/s persist. - XR HAND GENERAL 3V PA/LAT/OBL RIGHT IMPRESSION: No acute osseous abnormality Dictated by : MD Sanya ARAUJO APRN.AUTOMATION QA TESTER documented in this encounter [facility] 10-19-2023 History of Present illness Narrative Radiology Service Progress Note PATIENT NAME: Efe Agarwal DATE OF SERVICE: October 19, 2023 TIME: 11:03 AM PATIENT IDENTITY VERIFICATION COMPLETED USING TWO (2) IDENTIFIERS: Name and Date of confirmed by patient verbally. FALL SCREENING: Has the patient had 2 falls in the last year or 1 fall with injury or currently using an Ambulatory Assistive Device (Walker, Cane, Wheelchair, Crutches, etc.)? No PATIENT GENDER DATA: Male PATIENT RELEVANT IMPLANT DATA REVIEWED: Yes PATIENT PRESENTS WITH AN IMPLANTABLE OR ATTACHED SAFE AND VAULT SERVICE MECHANIC: No RADIOLOGY DEPARTMENT: General X-ray: Exam(s) Completed: Upper Extremity X-Ray(s): Hand, right PERIPHERAL IV DATA: Not applicable SIGNED BY: RT Belén(R) October 19, 2023 11:03 AM documented in this encounter [facility] 10-19-2023 Note HNO ID: [id number] Author: MORELIA SELLERS RT(R) Service: Radiology Author Type: Technologist Type: Progress Notes Filed: 10/19/2023 11:11 Note Text: Radiology Service Progress Note PATIENT NAME: Efe Agarwal DATE OF SERVICE: October 19, 2023 TIME: 11:03 AM PATIENT IDENTITY VERIFICATION COMPLETED USING TWO (2) IDENTIFIERS: Name and Date of confirmed by patient verbally. FALL SCREENING: Has the patient had 2 falls in the last year or 1 fall with injury or currently using an Ambulatory Assistive Device (Walker, Cane, Wheelchair, Crutches, etc.)? No PATIENT GENDER DATA: Male PATIENT RELEVANT IMPLANT DATA REVIEWED: Yes PATIENT PRESENTS WITH AN IMPLANTABLE OR ATTACHED SAFE AND VAULT SERVICE MECHANIC: No RADIOLOGY DEPARTMENT: General X-ray: Exam(s) Completed: Upper Extremity X-Ray(s): Hand, right PERIPHERAL IV DATA: Not applicable SIGNED BY: RT Belén(Lennox) October 19, 2023 11:03 AM [facility] Evaluation note No assessment inform ation available [facility] Work Phone: Evaluation note Diagnosis Meniere's disease of left ear- Primary documented in this encounter [facility] note* Diagnosis Hand injuries, right, initial encounter- Primary documented in this encounter [facility] note* Diagnosis Facial numbness- Primary Disturbance of skin sensation documented in this encounter [facility] note* Diagnosis No-show for appointment- Primary documented in this encounter [facility] note* Diagnosis Vomiting without nausea, unspecified vomiting type- Primary documented in this encounter [facility] for referral (narrative)* Diagnostic Procedure Only (Urgent) - Closed Specialty Diagnoses / Procedures Referred By Conorac t Referred To Contact XR IMAGING Diagnoses Hand injuries, right, initial encounter Procedures XR HAND GENERAL 3V PA/LAT/OBL RIGHT RADEX HAND MINIMUM 3 VIEWS Sanya Tom APRN.AUTOMATION QA TESTER [address] [place] [address] [place] [address] Referral ID Status Reason Start Date Expiration Date V isits Requested Visits Authorized [id number] Closed Auto-Generate d Referral 10/19/2023 11/17/2024 1 1 [facility] for visit Narrative* Diagnostic Procedure Only (Urgent) - Closed Specialty Diagnoses / Procedures Referred By Conorac t Referred To Contact XR IMAGING Diagnoses Hand injuries, right, initial encounter Procedures XR HAND GENERAL 3V PA/LAT/OBL RIGHT RADEX HAND MINIMUM 3 VIEWS Sanya Tom APRN.AUTOMATION QA TESTER [address] [place] [address] [place] [address] Referral ID Status Reason Start Date Expiration Date V isits Requested Visits Authorized [id number] Closed Auto-Generate d Referral 10/19/2023 11/17/2024 1 1 [facility] for visit Narrative* Diagnostic Procedure Only (Routine) - Closed Specialty Diagnoses / Procedures Referred By Conorac t Referred To Contact Radiology / RADIO MRI [facility] MOB Diagnoses Altered mental status, unspecified Altered Mental Status, Unspecified Procedures MRI BRAIN BRAIN STEM W/O W/CONTRAST MATERIAL MRI WWO NEU1 B 300 Dinesh Miles MD [address] [facility] [address] [place] [address] Radio Mri [facility] [address] [place] [address] Referral ID Status Reason Start Date Expiration Date Visits Re quested Visits Authorized [id number] Closed 02/09/2024 08/07/2024 1 1 [facility] Summary Purpose Family History No Family History Records Found Relationship Condition Age at Onset Recorded Date/T pranay brother Cerebrovascular accident (CVA) Unknown Epilepsy Unknown Cardiac disease Unknown Asthma Unknown History of ulcer disease Unknown father Alcoholism Unknown mother Arthritis Unknown Diabetes mellitus Unknown uncle Myocardial infarction 30 Mental disorder Unknown Advance Directives No Advanced Directives Records Found Advance Directive Response Recorded Date/ Time Living Will No March 15, 2021 11:20am Power of Phd Intern No February 11:20am Reason for Referral Specialty Diagnoses / Procedures Referred By Contac t Referred To Contact Otolaryngology Diagnoses Meniere's disease of left ear Khalida Davis DO [address] [facility] [place] [address] [place] [address] Beltran Darden MD [address] [place], [place] [address] Referral ID Status Reason Start Date Expiration Date V isits Requested Visits Authorized [id number] Authorized 04/10/2023 04/09/2024 1 1 Additional Source Comments (unrecognized sect ion and content) No Status Records FoundNo Status Records FoundNo Status Records FoundNo Status Records Found INFORMATION SOURCE (unrecogn ized section and content) DATE CREATED AUTHOR 09/09/2019 [facility] DATE CREATED AUTHOR AUTHOR'S ORGANIZ ATION 06/20/2024 [facility] DATE CREATED AUTHOR AUTHOR'S ORGANIZ ATION 07/01/2024 [facility] DATE CREATED AUTHOR AUTHOR'S ORGANIZ ATION 07/20/2024 [facility] Goals (unrecognized section and content) Goals may be documented in a n alternate section Care Teams (unrecognized sec tion and content) Butcher'S Assistant Relationship Specialty Start Date End Date Khalida Davis DO [address] [place] [address] [place] [address] PCP - General Family Medicine 04/10/23 Butcher'S Assistant Relationship Specialty Start Date End Date Khalida Davis DO [address] [place] [address] PCP - General Family Medicine 10/19/23 Butcher'S Assistant Relationship Specialty Start Date End Date Khalida Davis DO [address] [place] [address] PCP - General Family Medicine 10/19/23 Butcher'S Assistant Relationship Specialty Start Date End Date Khalida Davis DO [address] [place] [address] PCP - General Family Medicine 10/19/23 Butcher'S Assistant Relationship Specialty Start Date End Date Khalida Davis DO [address] [place] [address] PCP - General Family Medicine 10/19/23 Butcher'S Assistant Relationship Specialty Start Date End Date Khalida Davis DO [address] [place] [address] PCP - General Family Medicine 10/19/23 Source Comments (unrecognize d section and content) In the event this informatio n is protected by the Federal Confidentiality of Alcohol and Drug Abuse Patient Records regulations: The Federal rules restrict any use of the information to criminally investigate or prosecute any alcohol or drug abuse patient.[facility] the event this information is protected by the Federal Confidentiality of Alcohol and Drug Abuse Patient Records regulations: The Federal rules restrict any use of the information to criminally investigate or prosecute any alcohol or drug abuse patient.[facility] the event this information is protected by the Federal Confidentiality of Alcohol and Drug Abuse Patient Records regulations: The Federal rules restrict any use of the information to criminally investigate or prosecute any alcohol or drug abuse patient.[facility] the event this information is protected by the Federal Confidentiality of Alcohol and Drug Abuse Patient Records regulations: The Federal rules restrict any use of the information to criminally investigate or prosecute any alcohol or drug abuse patient.[facility] the event this information is protected by the Federal Confidentiality of Alcohol and Drug Abuse Patient Records regulations: The Federal rules restrict any use of the information to criminally investigate or prosecute any alcohol or drug abuse patient.[facility] the event this information is protected by the Federal Confidentiality of Alcohol and Drug Abuse Patient Records regulations: The Federal rules restrict any use of the information to criminally investigate or prosecute any alcohol or drug abuse patient.[facility] Reason for Visit (unrecogniz ed section and content) Reason Comments Trauma Right hand pinky fin viri injury x 1 day Reason Comments No Show Specialty Diagnoses / Procedures Referred By Contac t Referred To Contact Integrated Medicine / WELLNESS Diagnoses Vertigo ACUPUNCTURE VERTIGO AWARE OF INTAKE Procedures NEW [place] ACUPUNCTURE Self Darren Hernandez [address] [place] [address] Referral ID Status Reason Start Date Expiration Date Visits Requested Visits Authorized [id number] Pending Review Do Not Bill Insurance - SP patient 4 06/18/2024 1 0 Reason Comments Nausea & Vomiting States he threw up p ossible blood last night dark red in color, puked x 4 last evening, states he has had a headace FOR RECORDS PERTAINING TO PATIENTS WHO ARE OR HAVE BEEN ENROLLED IN A CHEMICAL DEPENDENCY/SUBSTANCEABUSE PROGRAM, SOME INFORMATION MAY BE OMITTED. This clinical summary was aggregated from multiple sources. Caution should be exercised in using it in the provision of clinical care. This summary normalizes information from multiple sources, and as a consequence, information in this document may materially change the coding, format and clinical context of patient data. In addition, data may be omitted in some cases. CLINICAL DECISIONS SHOULD BE BASED ON THE PRIMARY CLINICAL RECORDS. [facility]. provides no warranty or guarantee of the accuracy or completeness of information in this document.
== END 2024-12-26 22:51 | disposition home or self-care (01) ==
PROVIDERS: Emergency Provider Emergency Medicine; PCP Family Medicine; Visit Provider Emergency Medicine
DX: S76.919A Strain of unspecified muscles, fascia and tendons at thigh level, unspecified thigh, initial encounter (principal); R26.2 Difficulty in walking, not elsewhere classified; Y99.0 Civilian activity done for income or pay; W23.0XXA Caught, crushed, jammed, or pinched between moving objects, initial encounter
CPT/HCPCS: 72170; 99282

== ENCOUNTER → 2025-01-17 | Outpatient (CLI) | payer OTHER, SELFPAY ==
--- NOTE | 2025-01-17 14:41 | RAD_ITS ---
PROCEDURE: HIP, UNI W/ PELVIS 2-3 VIEWS 01/17/2025 REASON FOR EXAM: LT UPPER LEG STRAIN TECHNIQUE: HIP, left w/PELVIS 2-3 VIEWS COMPARISON: AP pelvis of 12/26/2024. RAD/HIP, UNI W/ Pelvis 2-3 Views IMPRESSION: Minimal degenerative changes of the hip joints are seen, without evidence of lianet int space narrowing. No evidence of femoral head osteonecrosis. Sacroiliac joints appear symmetric and within the normal range for age. No fracture or dislocation is evident. If clinical concern persists, short-ter m follow-up imaging may be obtained to rule out a currently occult fracture. Reading Location: [place] [address]
== END | disposition home or self-care (01) ==
LOC: RAD 14:40
PROVIDERS: PCP Family Medicine; Referring Provider Emergency Medicine; Visit Provider Emergency Medicine
DX: S86.912A Strain of unspecified muscle(s) and tendon(s) at lower leg level, left leg, initial encounter (principal)
CPT/HCPCS: 73502